=== PATIENT | female | born 1945 | race Caucasian/White ===

== ENCOUNTER 2016-11-25 15:38 | Emergency (ER) | payer MEDICARE, MEDICAID ==
[~2016-11-25] VITALS: Ht 170.2 cm; Wt 59.0 kg
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
[2016-11-25 16:00] VITALS: BP 152/73
[2016-11-25] MEDS ORDERED: OLANZapine 5 MG ODT (ZyPREXA ZYDIS) PO ONE (16:00)
[2016-11-25] MEDS ORDERED: HALOPERIDOL 5 MG/ML (HALDOL) AMP ONE (16:02)
[2016-11-25 16:06] LABS: BASOPHILS % (AUTO) 0 % (0-10); EOSINOPHILS % (AUTO) 0 % (0-10); LYMPHOCYTES # (AUTO) 2.3 X 10^3 (1.0-4.0); LYMPHOCYTES % (AUTO) 29 % (12-44); MEAN CORPUSCULAR HEMOGLOBIN 29 PG (25-34); MEAN CORPUSCULAR HGB CONC 33 G/DL (32-36); MEAN CORPUSCULAR VOLUME 88 FL (80-99); MEAN PLATELET VOLUME 10.2 FL (7.4-10.4); MONOCYTES # (AUTO) 0.6 X 10^3 (0.0-1.0); MONOCYTES % (AUTO) 7 % (0-12); NEUTROPHILS # (AUTO) 5.1 X 10^3 (1.8-7.8); NEUTROPHILS % (AUTO) 63 % (42-75); PLATELET COUNT 242 10^3/uL (130-400); RED BLOOD COUNT 4.44 10^6/uL (4.35-5.85); RED CELL DISTRIBUTION WIDTH 16.1 % (10.0-14.5)
[2016-11-25] MEDS ORDERED: HALOPERIDOL 5 MG/ML (HALDOL) AMP IM ONE (16:15)
[2016-11-25 16:29] LABS: ALANINE AMINOTRANSFERASE 20 U/L (0-55); ANION GAP 9 MMOL/L (5-14); ASPARTATE AMINO TRANSFERASE 18 U/L (5-34); BILIRUBIN,TOTAL 0.2 MG/DL (0.1-1.0); BLOOD UREA NITROGEN 15 MG/DL (7-18); BUN/CREATININE RATIO 18; CALCIUM 10.1 MG/DL (8.5-10.1); CARBON DIOXIDE 22 MMOL/L (21-32); CHLORIDE 108 MMOL/L (98-107); CREATININE SERUM 0.83 MG/DL (0.60-1.30); GFR ESTIMATED > 60; GLUCOSE 108 MG/DL (70-105); POTASSIUM 3.8 MMOL/L (3.6-5.0); SODIUM 139 MMOL/L (135-145); TOTAL PROTEIN 6.5 GM/DL (6.4-8.2)
[2016-11-25] MEDS ORDERED: APAP 300 MG/CODEINE 30 MG (TYLENOL #3) TAB PO ONE (17:00)
[2016-11-25] MEDS ORDERED: LORazepam INJ 2 MG/ML (ATIVAN) VIAL IM ONE (17:00)
[2016-11-25] MEDS ORDERED: HYDROcodone/APAP 5 MG/325 MG (LORTAB) TAB PO ONE (18:00)
[2016-11-25] MEDS ORDERED: AMOX500C2 PO (18:58)
[2016-11-25] MEDS ORDERED: LORA2ORA PO (18:58)
[2016-11-25] MEDS ORDERED: DOCU-143 PO (18:58)
[2016-11-25] MEDS ORDERED: HYDR-757 PO (18:58)
--- OUTSIDE RECORDS SUMMARY | 2016-11-26 11:11 | XMS REPORT ---
Author Author ELVIA PENNY [facility] eClinicalWorks Address Unknown Phone Unavailable Care Team Providers Care Superintendent Landfill Operations Name Role Phone ELVIA PENNY CP Unavailable Allergies, Adverse Reactions, Alerts Substance Reaction Event Type N.K.D.A. Info Not Available Non Drug Allergy Problems Problem Type Condition Code Onset Dates Condition Status Assessment CONSTIPATION NOS 564.00 Active Assessment GERD 530.81 Active Assessment Acute bronchitis 466.0 Active Assessment Tobaccoism 305.1 Active Problem back pain 724.5 Active Problem COPD w/o exacerbation 491.20 Active Problem Tobacco use disorder 305.1 Active Problem GERD 530.81 Active Assessment COPD w/o exacerbation 491.20 Active Problem Back pain 724.5 Active Problem Hypertension 401.9 Active Medications Medication Code System Code Instructions Start Date End Date Status Dosage [place]ybutynin NDC 50789 5 mg orally 3 times a day 1 tab(s) gabapentin NDC 65447 600 mg orally 3 times a day Feb 06, 2013 1 cap( s) Therems M NDC 6341 Therapeutic Multiple Vitamins with Minerals orally once a day 1 tab(s) MiraLax NDC 86010 - orally once a day 0 amlodipine NDC 07782 2.5 mg orally once a day 1 tab(s) Prednisone NDC 92939 20 mg orally once a day July 26, 2014 2 tab(s ) Fetzima NDC 352482 80 mg orally once a day 1 cap(s) atorvastatin NDC 57791 10 mg orally once a day (at bedtime) 1 tab( s) hydroxyzine NDC 27800 hydrochloride 50 mg orally 3 times a day 1 tab(s) trazodone NDC 14621 100 mg orally as needed at bedtime 2 tablets diclofenac sodium NDC 32357 sodium 75 mg orally once daily and maybe take 1 tablet again if needed May 07, 2014 1-2 tab(s) Seroquel NDC 08084 25 mg orally 2 times a day 1 tab(s) omeprazole NDC 98654 20 mg orally once a day May 28, 2014 1 cap(s) clopidogrel NDC 92897 75 mg orally once a day 1 tab(s) MiraLax NDC 93534 - orally once a day as needed July 26, 2014 17 g Seroquel XR NDC 742035 300 mg orally once a day (in the evening) 2 tablets Nicoderm C-Q NDC 20711 21 mg/24 hr transdermally once a day July 26, 2014 1 PATCH Melatonin NDC 5609 3 mg orally once (at bedtime) 2 tablets clonazepam NDC 75568 0.5 mg orally 1 tab twice a day and 2 at bedtime 1 tab(s) ProAir HFA NDC 79121 CFC free 90 mcg/inh inhaled as needed every 4-6 hrs INHALE 2 PUFFS FOUR TIMES A DAY LEVAQUIN NDC 6466 750 mg orally every 24 hours July 26, 2014 1 tab( s) Procedures Procedure Coding System Code Date Office Visit, estab pt, Level 3 CPT-4 72181 July 26, 2014 Vital Signs Date/Time: July 26, 2014 BMI 30.38 Index Weight 194 lbs Height 67 in Pain Scale 0-denies 0-10 Blood Pressure Diastolic 80 mm Hg Blood Pressure Systolic 140 mm Hg Temperature 99.8 F Oximetry 92 % Results No Known Results Summary Purpose eClinicalWorks Submission
--- OUTSIDE RECORDS SUMMARY | 2016-11-26 11:11 | XMS REPORT ---
Author Author ALISSA GONZALEZ Organization eClinicalWorks Address Unknown Phone Unavailable Care Team Providers Care Line Tender Name Role Phone ALISSA GONZALEZ CP Unavailable Allergies No Known Allergies Problems Problem Type Condition Code Onset Dates Condition Status Problem Cognitive deficits 438.0 Active Problem Tobacco use Z72.0 Active Problem Essential (primary) hypertension I10 Active Problem Chronic obstructive pulmonary disease, unspecified J44.9 Active Problem Cognitive deficits 438.0 Active Problem Gastro-esophageal reflux disease without esophagitis K21.9 Active Problem Hyperlipidemia, unspecified E78.5 Active Problem Post-traumatic stress disorder, chronic F43.12 Active Medications No Known Medications Results No Known Results Summary Purpose eClinicalWorks Submission
--- OUTSIDE RECORDS SUMMARY | 2016-11-26 11:12 | XMS REPORT ---
Author Author LUIS ALFREDO MENDOZA Organization eClinicalWorks Address Unknown Phone Unavailable Care Team Providers Care Banking Representative Name Role Phone LUIS ALFREDO MENDOZA CP Unavailable Allergies, Adverse Reactions, Alerts Substance Reaction Event Type Pristiq diarrhea Drug Allergy lithium vomiting Drug Allergy Wellbutrin tinnitus Drug Allergy Prozac palpitations Drug Allergy Problems Problem Type Condition Code Onset Dates Condition Status Problem Cognitive deficits 438.0 Active Assessment Wheezing R06.2 Active Problem Tobacco use Z72.0 Active Problem Essential (primary) hypertension I10 Active Problem Chronic obstructive pulmonary disease, unspecified J44.9 Active Problem Cognitive deficits 438.0 Active Problem Gastro-esophageal reflux disease without esophagitis K21.9 Active Problem Hyperlipidemia, unspecified E78.5 Active Problem Post-traumatic stress disorder, chronic F43.12 Active Medications Medication Code System Code Instructions Start Date End Date Status Dosage Seroquel XR NDC 614642 300 mg orally once a day (in the evening) 1 tablets gabapentin NDC 02541 600 mg orally daily Feb 06, 2013 3 caps omeprazole NDC 17146 20 mg orally once a day May 28, 2014 1 cap(s) Therems M NDC 6341 Therapeutic Multiple Vitamins with Minerals orally once a day 1 tab(s) Ventolin HFA NDC 54372 CFC free 90 mcg/inh inhaled 4 times a day May 15, 2015 2 puff(s) donepezil NDC 78809 5 mg orally daily at bedtime not defined clonidine NDC 52611 0.1 mg orally as needed every 6 hrs for SBP over 170 1 tab(s) Seroquel NDC 32324 100 mg orally 1 times a day at bedtime 1 tab(s) donepezil NDC 25409 5 mg orally once a day (at bedtime) 1 tab(s) quetiapine NDC 45958 50 mg orally 2 times a day 1 tab(s) prednisone NDC 56360 20 mg orally once a day July 30, 2015 1 tab(s) Advair Diskus NDC 58696 250 mcg-50 mcg inhaled 2 times a day 1 puff(s) VESIcare NDC 48940 10 mg orally once a day 1 tab(s) sertraline NDC 68678 50 mg orally once a day 1 tab(s) Protonix NDC 31155 40 mg orally once a day 1 tab(s) lisinopril NDC 43823 20 mg orally once a day 1 tab(s) oxybutynin NDC 27520 5 mg orally 3 times a day 1 tab(s) Symbicort NDC 93143 160 mcg-4.5 mcg/inh inhaled 2 times a day 2 puff(s) quetiapine NDC 35535 50 mg orally 4 times a day as needed for anxiety or insomnia, can repeat in 1 hrs at HS if not sleeping 2 tab(s) Polyethylene Glycol NDC 22933 - orally as needed once a day 240 mL atorvastatin NDC 24484 20 mg orally once a day (at bedtime) 1 tab( s) Procedures Procedure Coding System Code Date Office Visit, estab pt, Level 3 CPT-4 33902 July 30, 2015 Vital Signs Date/Time: July 30, 2015 Blood Pressure Diastolic 80 mm Hg Blood Pressure Systolic 120 mm Hg Weight 211 lbs Oximetry 97 % Pain Scale 0 0-10 Results No Known Results Summary Purpose eClinicalWorks Submission
--- OUTSIDE RECORDS SUMMARY | 2016-11-26 11:12 | XMS REPORT ---
Author Author ALISSA GONZALEZ Organization eClinicalWorks Address Unknown Phone Unavailable Care Team Providers Care Credit Cashier Name Role Phone ALISSA GONZALEZ CP Unavailable [...]
--- OUTSIDE RECORDS SUMMARY | 2016-11-26 11:12 | XMS REPORT ---
Author Author ALISSA GONZALEZ Organization eClinicalWorks Address Unknown Phone Unavailable Care Team Providers Care Dry Cleaning Supervisor Name Role Phone ALISSA GONZALEZ CP Unavailable Allergies No Known Allergies Problems Problem Type Condition Code Onset Dates Condition Status Problem GERD 530.81 Active Problem Hyperlipidemia 272.4 Active Problem Tobacco use disorder 305.1 Active Problem Cognitive deficits 438.0 Active Problem Back pain 724.5 Active Problem Hypertension 401.9 Active Problem back pain 724.5 Active Problem COPD w/o exacerbation 491.20 Active Medications No Known Medications Results No Known Results Summary Purpose eClinicalWorks Submission
--- OUTSIDE RECORDS SUMMARY | 2016-11-26 11:12 | XMS REPORT ---
Author Author ALISSA GONZALEZ Organization eClinicalWorks Address Unknown Phone Unavailable Care Team Providers Care Paperboard Box Maker Name Role Phone ALISSA GONZALEZ CP Unavailable Allergies No Known Allergies Problems Problem Type Condition Code Onset Dates Condition Status Problem Gastro-esophageal reflux disease without esophagitis K21.9 Active Problem Cognitive deficits 438.0 Active Problem Chronic obstructive pulmonary disease, unspecified J44.9 Active Problem Tobacco use Z72.0 Active Problem Chronic obstructive pulmonary disease with (acute) exacerbation J44.1 Active Problem Post-traumatic stress disorder, chronic F43.12 Active Problem Cognitive deficits 438.0 Active Problem Essential (primary) hypertension I10 Active Problem Hyperlipidemia, unspecified E78.5 Active Medications No Known Medications Results No Known Results Summary Purpose eClinicalWorks Submission
--- OUTSIDE RECORDS SUMMARY | 2016-11-26 11:12 | XMS REPORT ---
Author Author ELVIA PENNY Organization eClinicalWorks Address Unknown Phone Unavailable Care Team Providers Care Size Worker Name Role Phone ELVIA PENNY CP Unavailable Allergies No Known Allergies Problems Problem Type Condition Code Onset Dates Condition Status Problem back pain 724.5 Active Problem COPD w/o exacerbation 491.20 Active Problem Tobacco use disorder 305.1 Active Problem GERD 530.81 Active Problem Back pain 724.5 Active Problem Hypertension 401.9 Active Medications Medication Code System Code Instructions Start Date End Date Status Dosage Symbicort NDC 16647 160 mcg-4.5 mcg/inh inhaled 2 times a day July 27, 2014 2 puff(s) Results No Known Results Summary Purpose eClinicalWorks Submission
--- OUTSIDE RECORDS SUMMARY | 2016-11-26 11:12 | XMS REPORT ---
Author Author ALISSA GONZALEZ Organization e[employer] Address Unknown Phone Unavailable Care Team Providers Care Cold Type Artist Name Role Phone ALISSA GONZALEZ CP Unavailable [...]
--- OUTSIDE RECORDS SUMMARY | 2016-11-26 11:12 | XMS REPORT ---
Author Author LUIS ALFREDO MENDOZA [facility] eClinicalWorks Address Unknown Phone Unavailable Care Team Providers Care Disability Insurance Hearing Officer Name Role Phone LUIS ALFREDO MENDOZA CP Unavailable Allergies, Adverse Reactions, Alerts Substance Reaction Event Type Pristiq diarrhea Drug Allergy Wellbutrin tinitus Drug Allergy Prozac palpitations Drug Allergy Problems Problem Type Condition Code Onset Dates Condition Status Problem GERD 530.81 Active Assessment Acute sinusitis, unspecified J01.90 Active Problem Hyperlipidemia 272.4 Active Problem Tobacco use disorder 305.1 Active Problem Cognitive deficits 438.0 Active Problem Back pain 724.5 Active Problem Hypertension 401.9 Active Problem back pain 724.5 Active Problem COPD w/o exacerbation 491.20 Active Medications Medication Code System Code Instructions Start Date End Date Status Dosage Augmentin NDC 589 875 mg-125 mg orally every 12 hours Feb 25, 2015 1 tab(s) ProAir HFA NDC 56796 CFC free 90 mcg/inh inhaled as needed every 4-6 hrs inhale 2 puffs four times a day Symbicort NDC 50221 160 mcg-4.5 mcg/inh inhaled 2 times a day 2 puff(s) Melatonin NDC 5609 3 mg orally once (at bedtime) 2 tablets Seroquel XR NDC 936691 300 mg orally once a day (in the evening) 2 tablets hydroxyzine NDC 47242 hydrochloride 50 mg orally 3 times a day 1 tab(s) clonazepam NDC 03796 0.5 mg orally 1 tab twice a day and 2 at bedtime 1 tab(s) Fetzima NDC 388723 80 mg orally once a day 1 cap(s) naproxen NDC 73772 375 mg orally 2 times a day with food Feb 25, 2015 1 tab(s) Neurontin NDC 2269 600 mg orally 3 times a day 1 tab(s) Procedures Procedure Coding System Code Date Office Visit, estab pt, Level 3 CPT-4 06765 Feb 25, 2015 Vital Signs Date/Time: Feb 25, 2015 Blood Pressure Systolic 142 mm Hg Temperature 98.5 F Weight 207 lbs Oximetry 96 % Pain Scale 9-10 0-10 Blood Pressure Diastolic 70 mm Hg Results No Known Results Summary Purpose eClinicalWorks Submission
--- OUTSIDE RECORDS SUMMARY | 2016-11-26 11:12 | XMS REPORT ---
Author Author ALISSA GONZALEZ Organization eClinicalWorks Address Unknown Phone Unavailable Care Team Providers Care Medical Records Tech Name Role Phone ALISSA GONZALEZ CP Unavailable Allergies No Known Allergies Problems Problem Type Condition ICD-9 Code Onset Dates Condition Status Assessment Dysequilibrium 780.4 Active Problem GERD 530.81 Active Assessment Weakness, generalized 780.79 Active Assessment Cognitive deficits 438.0 Active Assessment Imbalance 781.2 Active Problem Hyperlipidemia 272.4 Active Problem Tobacco use disorder 305.1 Active Problem Cognitive deficits 438.0 Active Problem Back pain 724.5 Active Problem Hypertension 401.9 Active Problem back pain 724.5 Active Problem COPD w/o exacerbation 491.20 Active Medications No Known Medications Results No Known Results Summary Purpose eClinicalWorks Submission
--- OUTSIDE RECORDS SUMMARY | 2016-11-26 11:12 | XMS REPORT ---
Author Author ALISSA GONZALEZ Organization eClinicalWorks Address Unknown Phone Unavailable Care Team Providers Care Ear Muff Assembler Name Role Phone ALISSA GONZALEZ CP Unavailable [...]
--- OUTSIDE RECORDS SUMMARY | 2016-11-26 11:12 | XMS REPORT ---
Author Author ALISSA GONZALEZ Organization eClinicalWorks Address Unknown Phone Unavailable Care Team Providers Care Barrel Cap Setter Name Role Phone ALISSA GONZALEZ CP Unavailable Allergies No Known Allergies Problems Problem Type Condition ICD-9 Code Onset Dates Condition Status Problem GERD 530.81 Active Problem Hyperlipidemia 272.4 Active Problem Tobacco use disorder 305.1 Active Problem Cognitive deficits 438.0 Active Problem Back pain 724.5 Active Problem Hypertension 401.9 Active Problem back pain 724.5 Active Problem COPD w/o exacerbation 491.20 Active Medications No Known Medications Results No Known Results Summary Purpose eClinicalWorks Submission
--- OUTSIDE RECORDS SUMMARY | 2016-11-26 11:12 | XMS REPORT ---
Author Author ELVIA PENNY [facility] eClinicalWorks Address Unknown Phone Unavailable Care Team Providers Care Director Of Admissions Name Role Phone ELVIA PENNY Unavailable Allergies No Known Allergies Problems Problem Type Condition ICD-9 Code Onset Dates Condition Status Problem back pain 724.5 Active Problem COPD w/o exacerbation 491.20 Active Problem Tobacco use disorder 305.1 Active Problem Back pain 724.5 Active Medications Medication Code System Code Instructions Start Date End Date Status Dosage Nicoderm C-Q [facility] 53170 14 mg/24 hr transdermally once a day May 22, 2014 1 PATCH Results No Known Results Summary Purpose eClinicalWorks Submission
--- OUTSIDE RECORDS SUMMARY | 2016-11-26 11:12 | XMS REPORT ---
Author Author ALISSA GONZALEZ Organization eClinicalWorks Address Unknown Phone Unavailable Care Team Providers Care Applications Packager Name Role Phone ALISSA GONZALEZ CP Unavailable [...]
--- OUTSIDE RECORDS SUMMARY | 2016-11-26 11:12 | XMS REPORT ---
Author Author ELVIA PENNY Organization eClinicalWorks Address Unknown Phone Unavailable Care Team Providers Care Table Hand Name Role Phone ELVIA PENNY CP Unavailable Allergies No Known Allergies Problems Problem Type Condition Code Onset Dates Condition Status Problem back pain 724.5 Active Problem COPD w/o exacerbation 491.20 Active Problem Tobacco use disorder 305.1 Active Problem GERD 530.81 Active Assessment Acute bronchitis 466.0 Active Problem Back pain 724.5 Active Problem Hypertension 401.9 Active Medications Medication Code System Code Instructions Start Date End Date Status Dos[place]DC 19102 CFC free 90 mcg/inh inhaled as needed every 4-6 hrs INHALE 2 PUFFS FOUR TIMES A DAY Results No Known Results Summary Purpose eClinicalWorks Submission
--- OUTSIDE RECORDS SUMMARY | 2016-11-26 11:13 | XMS REPORT ---
Author Author ELVIA PENNY Organization eClinicalWorks Address Unknown Phone Unavailable Care Team Providers Care Senior Web Services Developer Name Role Phone ELVIA PENNY Unavailable Allergies No Known Allergies Problems Problem Type Condition ICD-9 Code Onset Dates Condition Status Problem back pain 724.5 Active Problem COPD w/o exacerbation 491.20 Active Problem Tobacco use disorder 305.1 Active Problem Back pain 724.5 Active Assessment COPD w/o exacerbation 491.20 Active Medications Medication Code System Code Instructions Start Date End Date [place] [address] CFC free 90 mcg/inh inhaled as needed every 4-6 hrs INHALE 2 PUFFS [place] [address] 20 mg orally once a day May 28, 2014 1 cap(s) Results No Known Results Summary Purpose eClinicalWorks Submission
--- OUTSIDE RECORDS SUMMARY | 2016-11-26 11:13 | XMS REPORT ---
Author Author LUIS ALFREDO MENDOZA Organization e[employer]Works Address Unknown Phone Unavailable Care Team Providers Care Grinder Set Up Operator Thread Name Role Phone LUIS ALFREDO MENDOZA CP Unavailable Allergies, Adverse Reactions, Alerts Substance Reaction Event Type Pristiq diarrhea Drug Allergy Wellbutrin tinnitus Drug Allergy Prozac palpitations Drug Allergy Problems Problem Type Condition Code Onset Dates Condition Status Problem Cognitive deficits 438.0 Active Assessment Other migraine, intractable, without status migrainosus G43.819 Active Problem Tobacco use Z72.0 Active Problem Essential (primary) hypertension I10 Active Problem Chronic obstructive pulmonary disease, unspecified J44.9 Active Problem Cognitive deficits 438.0 Active Problem Gastro-esophageal reflux disease without esophagitis K21.9 Active Problem Hyperlipidemia, unspecified E78.5 Active Problem Post-traumatic stress disorder, chronic F43.12 Active Medications Medication Code System Code Instructions Start Date End Date Status Dosage Seroquel XR NDC 183272 300 mg orally once a day (in the evening) 2 tablets propranolol NDC 44349 10 mg orally 2 times a day May 01, 2015 1 tab( s) atorvastatin NDC 12879 20 mg orally once a day (at bedtime) 1 tab( s) omeprazole NDC 56392 20 mg orally once a day May 28, 2014 1 cap(s) ProAir HFA NDC 88651 CFC free 90 mcg/inh inhaled as needed every 4-6 hrs inhale 2 puffs four times a day oxybutynin NDC 99006 5 mg orally 3 times a day 1 tab(s) Symbicort NDC 82232 160 mcg-4.5 mcg/inh inhaled 2 times a day 2 puff(s) Melatonin NDC 5609 3 mg orally once (at bedtime) 2 tablets aspirin NDC 23712 325 mg orally once a day 1 tab(s) Excedrin Migraine NDC 36095 250 mg-250 mg-65 mg orally every 6 hours Apr 2 tab(s) Fetzima NDC 227479 40 mg orally once a day 1 cap(s) Walker NDC 0 September 17, 2014 as directed cevimeline NDC 19199 30 mg orally 2 times a day 1 cap(s) clonazepam NDC 23862 0.5 mg orally 1 tab twice a day 1 tab(s) lisinopril NDC 32472 10 mg orally once a day 1 tab(s) gabapentin NDC 84838 300 mg orally 3 times a day for headaches Feb 06, 2013 1 caps Procedures Procedure Coding System Code Date Office Visit, estab pt, Level 4 CPT-4 29200 May 06, 2015 Methylprednisolone (Depo-Medrol) CPT-4 J1030 May 06, 2015 Vital Signs Date/Time: May 06, 2015 Blood Pressure Systolic 174 mm Hg Temperature 99.1 F Weight 210.4 lbs Oximetry 90 % Pain Scale 10 0-10 Blood Pressure Diastolic 92 mm Hg Results No Known Results Summary Purpose eClinicalWorks Submission
--- OUTSIDE RECORDS SUMMARY | 2016-11-26 11:13 | XMS REPORT ---
Author Author ALISSA GONZALEZ [facility] eClinicalWorks Address Unknown Phone Unavailable Care Team Providers Care Sausage Smoker Name Role Phone ALISSA GONZALEZ CP Unavailable Allergies No Known Allergies Problems Problem Type Condition Code Onset Dates Condition Status Assessment Essential (primary) hypertension I10 Active Problem Cognitive deficits 438.0 Active Assessment Chronic tension-type headache, intractable G44.221 Active Problem Tobacco use Z72.0 Active Problem Essential (primary) hypertension I10 Active Problem Chronic obstructive pulmonary disease, unspecified J44.9 Active Problem Cognitive deficits 438.0 Active Problem Gastro-esophageal reflux disease without esophagitis K21.9 Active Problem Hyperlipidemia, unspecified E78.5 Active Problem Post-traumatic stress disorder, chronic F43.12 Active Medications Medication Code System Code Instructions Start Date End Date Status Dosage oxybutynin NDC 84147 5 mg orally 3 times a day 1 tab(s) atorvastatin NDC 78299 20 mg orally once a day (at bedtime) 1 tab( s) Melatonin NDC 5609 3 mg orally once (at bedtime) 2 tablets gabapentin NDC 14754 300 mg orally 3 times a day for headaches Feb 06, 2013 1 caps Seroquel XR NDC 762929 300 mg orally once a day (in the evening) 2 tablets clonazepam NDC 66064 0.5 mg orally 1 tab twice a day 1 tab(s) ProAir HFA NDC 80883 CFC free 90 mcg/inh inhaled as needed every 4-6 hrs inhale 2 puffs four times a day Symbicort NDC 39096 160 mcg-4.5 mcg/inh inhaled 2 times a day 2 puff(s) lisinopril NDC 52352 10 mg orally once a day 1 tab(s) aspirin NDC 31844 325 mg orally once a day 1 tab(s) Fetzima NDC 067556 40 mg orally once a day 1 cap(s) propranolol NDC 52406 10 mg orally 2 times a day May 01, 2015 1 tab( s) Excedrin Migraine [facility] 53821 250 mg-250 mg-65 mg orally every 6 hours Apr 2 tab(s) Procedures Procedure Coding System Code Date Office Visit, estab pt, Level 4 CPT-4 52870 May 01, 2015 Vital Signs Date/Time: May 01, 2015 Blood Pressure Diastolic 92 mm Hg Blood Pressure Systolic 168 mm Hg Weight 212 lbs Pain Scale 8 0-10 Results No Known Results Summary Purpose eClinicalWorks Submission
--- OUTSIDE RECORDS SUMMARY | 2016-11-26 11:13 | XMS REPORT ---
Author Author ELVIA PENNY Organization [employer] Address Unknown Phone Unavailable Care Team Providers Care Communications Intern Name Role Phone ELVIA PENNY Unavailable Allergies No Known Allergies Problems Problem Type Condition ICD-9 Code Onset Dates Condition Status Problem back pain 724.5 Active Problem COPD w/o exacerbation 491.20 Active Problem Tobacco use disorder 305.1 Active Problem Back pain 724.5 Active Assessment back pain 724.5 Active Medications Medication Code System Code Instructions Start Date End Date Status Dosage diclofenac sodium [facility] 99132 sodium 75 mg orally once daily and maybe take 1 tablet again if needed May 07, 2014 1-2 tab(s) Results No Known Results Summary Purpose eClinicalWorks Submission
--- OUTSIDE RECORDS SUMMARY | 2016-11-26 11:14 | XMS REPORT ---
Author Author ALISSA GONZALEZ [facility] eClinicalWorks Address Unknown Phone Unavailable Care Team Providers Care Country Director Name Role Phone ALISSA GONZALEZ CP Unavailable Allergies, Adverse Reactions, Alerts Substance Reaction Event Type Pristiq diarrhea Drug Allergy Wellbutrin tinitus Drug Allergy Prozac palpitations Drug Allergy Problems Problem Type Condition ICD-9 Code Onset Dates Condition Status Assessment Cognitive impairment, mild 331.83 Active Problem GERD 530.81 Active Assessment Imbalance 781.2 Active Assessment Overactive bladder 596.51 Active Problem Hyperlipidemia 272.4 Active Problem Tobacco use disorder 305.1 Active Problem Cognitive deficits 438.0 Active Problem Back pain 724.5 Active Problem Hypertension 401.9 Active Problem back pain 724.5 Active Problem COPD w/o exacerbation 491.20 Active Medications Medication Code System Code Instructions Start Date End Date Status Dosage hydroxyzine NDC 03478 hydrochloride 50 mg orally 3 times a day 1 tab(s) Neurontin NDC 2269 600 mg orally 3 times a day 1 tab(s) Seroquel XR NDC 221344 300 mg orally once a day (in the evening) 2 tablets ProAir HFA NDC 31237 CFC free 90 mcg/inh inhaled as needed every 4-6 hrs inhale 2 puffs four times a day clonazepam NDC 16495 0.5 mg orally 1 tab twice a day and 2 at bedtime 1 tab(s) Fetzima NDC 811143 80 mg orally once a day 1 cap(s) Melatonin NDC 5609 3 mg orally once (at bedtime) 2 tablets Symbicort NDC 51459 160 mcg-4.5 mcg/inh inhaled 2 times a day 2 puff(s) Procedures Procedure Coding System Code Date Office Visit, estab pt, Level 5 CPT-4 46955 Dec 20, 2014 Vital Signs Date/Time: Dec 20, 2014 Blood Pressure Diastolic 80 mm Hg Blood Pressure Systolic 122 mm Hg Weight 191.4 lbs Pain Scale 0 0-10 Results No Known Results Summary Purpose eClinicalWorks Submission
--- OUTSIDE RECORDS SUMMARY | 2016-11-26 11:14 | XMS REPORT ---
Author Author SANDEEP RODRIGEZ [facility] eClinicalWorks Address Unknown Phone Unavailable Care Team Providers Care Snuff Packing Machine Operator Name Role Phone SANDEEP RODRIGEZ CP Unavailable Allergies, Adverse Reactions, Alerts Substance Reaction Event Type Pristiq diarrhea Drug Allergy Wellbutrin tinnitus Drug Allergy Prozac palpitations Drug Allergy Problems Problem Type Condition Code Onset Dates Condition Status Assessment Hyperlipidemia, unspecified E78.5 Active Problem Cognitive deficits 438.0 Active Assessment Essential (primary) hypertension I10 Active Assessment Post-traumatic stress disorder, chronic F43.12 Active Assessment Cognitive deficits 438.0 Active Problem Tobacco use Z72.0 Active Problem Essential (primary) hypertension I10 Active Problem Chronic obstructive pulmonary disease, unspecified J44.9 Active Problem Cognitive deficits 438.0 Active Problem Gastro-esophageal reflux disease without esophagitis K21.9 Active Problem Hyperlipidemia, unspecified E78.5 Active Problem Post-traumatic stress disorder, chronic F43.12 Active Medications Medication Code System Code Instructions Start Date End Date Status Dosage lisinopril NDC 96649 10 mg orally once a day 1 tab(s) omeprazole NDC 86035 20 mg orally once a day May 28, 2014 1 cap(s) gabapentin NDC 98849 300 mg orally 3 times a day for headaches Feb 06, 2013 2 caps cevimeline NDC 10257 30 mg orally 2 times a day 1 cap(s) atorvastatin NDC 81825 20 mg orally once a day (at bedtime) 1 tab( s) aspirin NDC 82141 325 mg orally once a day 1 tab(s) Symbicort NDC 88008 160 mcg-4.5 mcg/inh inhaled 2 times a day 2 puff(s) ProAir HFA NDC 45740 CFC free 90 mcg/inh inhaled as needed every 4-6 hrs inhale 2 puffs four times a day Seroquel XR ND 708263 300 mg orally once a day (in the evening) 2 tablets clonazepam NDC 88330 0.5 mg orally 1 tab twice a day and 2 at bedtime 1 tab(s) Melatonin NDC 5609 3 mg orally once (at bedtime) 2 tablets oxybutynin NDC 84985 5 mg orally 3 times a day 1 tab(s) Fetzima NDC 463330 80 mg orally once a day 1 cap(s) Procedures Procedure Coding System Code Date Office Visit, estab pt, Level 3 CPT-4 82667 Mar 22, 2015 PNEUMOCOCCAL-CONJUGATE 1 PREVNAR 13 CPT-4 83917 Mar 22, 2015 Vital Signs Date/Time: Mar 22, 2015 Blood Pressure Diastolic 78 mm Hg Blood Pressure Systolic 130 mm Hg Weight 212.0lb lbs Oximetry 97%RA % Pain Scale 0 0-10 Results No Known Results Immunizations Vaccine Administration Date PCV-13 (Prevnar) Mar 22, 2015 Summary Purpose eClinicalWorks Submission
--- OUTSIDE RECORDS SUMMARY | 2016-11-26 11:14 | XMS REPORT ---
Author Author ALISSA GONZALEZ Organization [employer] Address Unknown Phone Unavailable Care Team Providers Care Real Estate Loan Officer Name Role Phone ALISSA GONZALEZ CP Unavailable [...]
--- OUTSIDE RECORDS SUMMARY | 2016-11-26 11:14 | XMS REPORT ---
Author Author ELVIA PENNY Organization [employer] Address Unknown Phone Unavailable Care Team Providers Care Cement Production Plant Operator Name Role Phone ELVIA PENNY CP Unavailable Allergies No Known Allergies Problems Problem Type Condition Code Onset Dates Condition Status Problem back pain 724.5 Active Problem COPD w/o exacerbation 491.20 Active Problem Tobacco use disorder 305.1 Active Problem GERD 530.81 Active Problem Back pain 724.5 Active Problem Hypertension 401.9 Active Medications Medication Code System Code Instructions Start Date End Date Status Dosage Chantix Starter Pack ND 834569 0.5 mg-1 mg orally 2 times a day August 06, 2014 1 tab(s) Results No Known Results Summary Purpose eClinicalWorks Submission
--- OUTSIDE RECORDS SUMMARY | 2016-11-26 11:14 | XMS REPORT ---
Author Author ALISSA GONZALEZ Organization [employer] Address Unknown Phone Unavailable Care Team Providers Care Silviculture Forester Name Role Phone ALISSA GONZALEZ CP Unavailable [...]
--- OUTSIDE RECORDS SUMMARY | 2016-11-26 11:14 | XMS REPORT ---
Author Author ELVIA PENNY [facility] eClinicalWorks Address Unknown Phone Unavailable Care Team Providers Care Cement Kiln Operator Name Role Phone ELVIA PENNY CP Unavailable Allergies, Adverse Reactions, Alerts Substance Reaction Event Type N.K.D.A. Info Not Available Non Drug Allergy Problems Problem Type Condition Code Onset Dates Condition Status Assessment COPD w/o exacerbation 491.20 Active Assessment Dizziness 780.4 Active Assessment Cough 786.2 Active Problem back pain 724.5 Active Problem COPD w/o exacerbation 491.20 Active Problem Tobacco use disorder 305.1 Active Problem GERD 530.81 Active Assessment DYSPHAGIA NOS 787.20 Active Problem Back pain 724.5 Active Problem Hypertension 401.9 Active Assessment Schizoaffective disorder NOS 295.70 Active Assessment Acute bronchitis 466.0 Active Assessment CONSTIPATION NEC 564.09 Active Assessment Hypertension 401.9 Active Assessment Tobacco use disorder 305.1 Active Assessment back pain 724.5 Active Assessment Overactive bladder 596.51 Active Medications Medication Code System Code Instructions Start Date End Date Status Dosage Fetzima ND 518860 80 mg orally once a day 1 cap(s) Therems M NDC 6341 Therapeutic Multiple Vitamins with Minerals orally once a day 1 tab(s) clopidogrel NDC 51793 75 mg orally once a day 1 tab(s) amlodipine NDC 73144 2.5 mg orally once a day 1 tab(s) clonazepam NDC 23011 0.5 mg orally 1 tab twice a day and 2 at bedtime 1 tab(s) Seroquel XR NDC 534381 300 mg orally once a day (in the evening) 2 tablets ProAir HFA NDC 29428 CFC free 90 mcg/inh inhaled as needed every 4-6 hrs INHALE 2 PUFFS FOUR TIMES A DAY oxybutynin NDC 29227 5 mg orally 3 times a day 1 tab([place]) [place] [address] 20 mg orally once a day May 28, 2014 1 cap(s) Seroquel NDC 61175 25 mg orally 2 times a day 1 tab(s) hydroxyzine NDC 88703 hydrochloride 50 mg orally 3 times a day 1 tab(s) atorvastatin NDC 81235 10 mg orally once a day (at bedtime) 1 tab( s) diclofenac sodium NDC 23761 sodium 75 mg orally once daily and maybe take 1 tablet again if needed May 07, 2014 1-2 tab(s) gabapentin NDC 24133 600 mg orally 3 times a day Feb 06, 2013 1 cap( s) Procedures Procedure Coding System Code Date Office Visit, estab pt, Level 3 CPT-4 92847 July 13, 2014 Vital Signs Date/Time: July 13, 2014 Blood Pressure Systolic 120 mm Hg Temperature 97.2 F Weight 199 lbs Oximetry 97 % Pain Scale 7-joints/legs 0-10 Blood Pressure Diastolic 70 mm Hg Results No Known Results Summary Purpose eClinicalWorks Submission
--- OUTSIDE RECORDS SUMMARY | 2016-11-26 11:14 | XMS REPORT ---
Author Author ELVIA PENNY Organization [employer] Address Unknown Phone Unavailable Care Team Providers Care Auto Air Conditioning Installer Name Role Phone ELVIA PENNY CP Unavailable Allergies No Known Allergies Problems Problem Type Condition ICD-9 Code Onset Dates Condition Status Problem back pain 724.5 Active Problem COPD w/o exacerbation 491.20 Active Problem Tobacco use disorder 305.1 Active Problem GERD 530.81 Active Problem Back pain 724.5 Active Problem Hypertension 401.9 Active Medications No Known Medications Results No Known Results Summary Purpose eClinicalWorks Submission
--- OUTSIDE RECORDS SUMMARY | 2016-11-26 11:14 | XMS REPORT ---
Author Author SALEEM LEACH Organization [employer] Address Unknown Phone Unavailable Care Team Providers Care Hair Blender Name Role Phone SALEEM LEACH CP Unavailable Allergies, Adverse Reactions, Alerts Substance Reaction Event Type Pristiq diarrhea Drug Allergy Wellbutrin tinnitus Drug Allergy Prozac palpitations Drug Allergy Problems Problem Type Condition Code Onset Dates Condition Status Problem Cognitive deficits 438.0 Active Assessment Headache R51 Active Problem Tobacco use Z72.0 Active Problem Essential (primary) hypertension I10 Active Problem Chronic obstructive pulmonary disease, unspecified J44.9 Active Problem Cognitive deficits 438.0 Active Problem Gastro-esophageal reflux disease without esophagitis K21.9 Active Problem Hyperlipidemia, unspecified E78.5 Active Problem Post-traumatic stress disorder, chronic F43.12 Active Medications Medication Code System Code Instructions Start Date End Date Status Dosage ProAir HFA NDC 90691 CFC free 90 mcg/inh inhaled as needed every 4-6 hrs inhale 2 puffs four times a day Excedrin Migraine NDC 30304 250 mg-250 mg-65 mg orally every 6 hours Apr 2 tab(s) Seroquel XR NDC 743217 300 mg orally once a day (in the evening) 2 tablets aspirin NDC 53539 325 mg orally once a day 1 tab(s) Symbicort NDC 91068 160 mcg-4.5 mcg/inh inhaled 2 times a day 2 puff(s) clonazepam NDC 56906 0.5 mg orally 1 tab twice a day 1 tab(s) propranolol NDC 34121 10 mg orally 2 times a day May 01, 2015 1 tab( s) oxybutynin NDC 69948 5 mg orally 3 times a day 1 tab(s) Melatonin NDC 5609 3 mg orally once (at bedtime) 2 tablets lisinopril NDC 70414 10 mg orally once a day 1 tab(s) atorvastatin NDC 97593 20 mg orally once a day (at bedtime) 1 tab( s) gabapentin NDC 89752 300 mg orally 3 times a day for headaches Feb 06, 2013 1 caps Fetzima NDC 492861 40 mg orally once a day 1 cap(s) Procedures Procedure Coding System Code Date Office Visit, estab pt, Level 3 CPT-4 99246 May 04, 2015 Ketorolac CPT-4 J1885 May 04, 2015 Vital Signs Date/Time: May 04, 2015 Blood Pressure Systolic 180 mm Hg Temperature 99.1 F Weight 212 lbs Oximetry 96 % Pain Scale 10 0-10 Blood Pressure Diastolic 90 mm Hg Results No Known Results Summary Purpose eClinicalWorks Submission
--- OUTSIDE RECORDS SUMMARY | 2016-11-26 11:14 | XMS REPORT ---
Author Author ALISSA GONZALEZ Organization [employer] Address Unknown Phone Unavailable Care Team Providers Care Credit Negotiator Name Role Phone ALISSA GONZALEZ CP Unavailable [...]
--- OUTSIDE RECORDS SUMMARY | 2016-11-26 11:14 | XMS REPORT ---
Author Author ALISSA GONZALEZ Organization [employer] Address Unknown Phone Unavailable Care Team Providers Care Theater Set Production Designer Name Role Phone ALISSA GONZALEZ CP Unavailable [...]
--- OUTSIDE RECORDS SUMMARY | 2016-11-26 11:14 | XMS REPORT ---
Author Author ALISSA GONZALEZ Organization [employer]ClinicalWorks Address Unknown Phone Unavailable Care Team Providers Care Vehicle Check In Clerk Name Role Phone ALISSA GONZALEZ CP Unavailable [...] Instructions Start Date End Date Status Dosage Polyethylene Glycol NDC 75746 - orally as needed once a day August 13, 2015 240 mL Results No Known Results Summary Purpose eClinicalWorks Submission
--- OUTSIDE RECORDS SUMMARY | 2016-11-26 11:15 | XMS REPORT ---
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.85 Active Problem Cognitive deficits 438.0 Active Assessment Dysequilibrium 780.4 Active Assessment Cognitive deficits 438.0 Active Assessment Hyperlipidemia 272.4 Active Medications Medication Code System Code Instructions Start Date End [place] D[place] [address] 160 mcg-4.5 mcg/inh inhaled 2 times a day 2 puff(s) Therems M NDC 6341 Therapeutic Multiple Vitamins with Minerals orally once a day 1 tab([place]) [place] [address] - orally once a day 0 amlodipine NDC 97282 2.5 mg orally once a day 1 tab(s) atorvastatin NDC 24615 10 mg orally once a day (at bedtime) 1 tab( s) oxybutynin NDC 94302 5 mg orally 3 times a day 1 tab([place]) [place] [address] 75 mg orally once a day 1 tab(s) Melatonin NDC 5609 3 mg orally once (at bedtime) 2 tablets Seroquel NDC 28547 25 mg orally 2 times a day 1 tab([place]) [place] [address] 18 mcg sample inhaled once a day October 24, 2014 1 ea clonazepam NDC 80126 0.5 mg orally 1 tab twice a day and 2 at bedtime 1 tab(s) Seroquel XR NDC 093036 300 mg orally once a day (in the evening) 2 tablets ProAir HFA NDC 91861 CFC free 90 mcg/inh inhaled as needed every 4-6 hrs inhale 2 puffs [place] [address] 50 mg orally as needed at bedtime 1 tablets hydroxyzine NDC 54878 hydrochloride 50 mg orally 3 times a day 1 tab(s) Walker NDC 0 September 17, 2014 as directed omeprazole NDC 15531 20 mg orally once a day May 28, 2014 1 cap(s) Fetzima NDC 355372 80 mg orally once a day 1 cap(s) gabapentin NDC 66620 600 mg orally 3 times a day Feb 06, 2013 1 cap( s) Procedures Procedure Coding System Code Date Office Visit, estab pt, Level 4 CPT-4 73790 Nov 26, 2014 Vital Signs Date/Time: Nov 26, 2014 Blood Pressure Systolic 128 mm Hg Temperature 98.7 F Weight 196 lbs Pain Scale 7 OLIVA 0-10 Blood Pressure Diastolic 72 mm Hg Results No Known Results Summary Purpose eClinicalWorks Submission
== END 2016-11-25 19:19 | disposition home or self-care (01) ==
LOC: ER 15:45
DX: F91.1 Conduct disorder, childhood-onset type (principal); F02.81 Dementia in other diseases classified elsewhere, unspecified severity, with behavioral disturbance; K08.89 Other specified disorders of teeth and supporting structures
CPT/HCPCS: 36415; 80053; 85025; 96372; 99283

== ENCOUNTER 2017-03-15 15:40 | Emergency (ER) | payer MEDICARE, MEDICAID ==
[~2017-03-15] VITALS: Ht 170.2 cm; Wt 59.0 kg
[~2017-03-15 15:40] MED LIST: AMOX500C2 PO; DOCU-143 PO; HYDR-757 PO; LORA2ORA PO
[2017-03-15 17:26] LABS: BASOPHILS % (AUTO) 0 % (0-10); EOSINOPHILS # (AUTO) 0.1 10^3/uL (0.0-0.3); EOSINOPHILS % (AUTO) 1 % (0-10); LYMPHOCYTES # (AUTO) 2.3 X 10^3 (1.0-4.0); LYMPHOCYTES % (AUTO) 30 % (12-44); MEAN CORPUSCULAR HEMOGLOBIN 30 PG (25-34); MEAN CORPUSCULAR HGB CONC 34 G/DL (32-36); MEAN CORPUSCULAR VOLUME 87 FL (80-99); MONOCYTES # (AUTO) 0.7 X 10^3 (0.0-1.0); MONOCYTES % (AUTO) 9 % (0-12); NEUTROPHILS # (AUTO) 4.6 X 10^3 (1.8-7.8); NEUTROPHILS % (AUTO) 60 % (42-75); PLATELET COUNT 270 10^3/uL (130-400); RED BLOOD COUNT 4.84 10^6/uL (4.35-5.85); RED CELL DISTRIBUTION WIDTH 16.2 % (10.0-14.5); WHITE BLOOD COUNT 7.7 10^3/uL (4.3-11.0)
[2017-03-15 17:48] LABS: ALANINE AMINOTRANSFERASE 12 U/L (0-55); ALBUMIN 3.9 GM/DL (3.2-4.5); ALCOHOL < 10 MG/DL (<10); ANION GAP 10 MMOL/L (5-14); ASPARTATE AMINO TRANSFERASE 15 U/L (5-34); BILIRUBIN,TOTAL 0.2 MG/DL (0.1-1.0); BLOOD UREA NITROGEN 15 MG/DL (7-18); BUN/CREATININE RATIO 16; CALCIUM 9.9 MG/DL (8.5-10.1); CARBON DIOXIDE 24 MMOL/L (21-32); CHLORIDE 107 MMOL/L (98-107); CREATININE SERUM 0.96 MG/DL (0.60-1.30); GFR ESTIMATED 58; GLUCOSE 112 MG/DL (70-105); SALICYLATE < 5.0 MG/DL (5.0-20.0); SODIUM 141 MMOL/L (135-145); TOTAL PROTEIN 6.8 GM/DL (6.4-8.2)
[2017-03-15 17:54] LABS: ACETAMINOPHEN < 10 UG/ML (10-30)
[2017-03-15 18:05] LABS: BILIRUBIN,URINE NEGATIVE (NEGATIVE); KETONES,URINE NEGATIVE (NEGATIVE); LEUKOCYTE ESTERASE ,URINE 2+ (NEGATIVE); NITRITE,URINE NEGATIVE (NEGATIVE); PH,URINE 8 (5-9); PROTEIN,URINE NEGATIVE (NEGATIVE); UROBILINOGEN,URINE NORMAL (NORMAL)
--- NOTE | 2017-03-15 19:42 | ED Psychosocial ---
General Chief Complaint: Psych/Social Disorder Stated Complaint: SUICIDAL Nursing Triage Note: pt reports she has felt suicidal for over a month. pt reports she does not have any plan or know of anything that triggered her feelings. pt reports she saw dr gamboa today and he told the long term to bring her here. Source: patient Exam Limitations: no limitations History of Present Illness Time seen by provider: 19:05 Initial Comments 71-year-old female patient presents to the emergency Department with reports of suicidal ideation. Patient states she does have a plan, but refuses to give specific details of the plan. Patient resides at [facility]. Patient was previously seen at [facility] ED by Roly Bernardo APRN November 24, 2016. At that time patient was seen for dementia with behaviors and discharged to the [facility]. Patient denies homicidal ideation. Patient is aware that there is 2016. She also is aware that she resides at [facility] in that she lives in [place]. Timing/Duration: getting worse Severity: moderate Associated Symptoms: anxiety, impaired concentration, suicidal ideation Allergies and Home Medications Allergies Coded Allergies: bupropion (Verified Allergy, Unknown, 11/25/16) fluoxetine (Verified Allergy, Unknown, 11/25/16) lithium (Verified Allergy, Unknown, 11/25/16) Home Medications Amoxicillin 500 Mg Capsule, 500 MG PO TID, #21 Prescribed by: ROLY BERNARDO on 11/25/161857 Docusate Sodium 100 Mg Capsule, 100 MG PO DAILY, #14 Prescribed by: ROLY BERNARDO on 11/25/161857 Hydrocodone/Acetaminophen 1 Each Tablet, 1 EACH PO QID, #14 Prescribed by: ROLY BERNARDO on 11/25/161857 Lorazepam 2 Mg/1 Ml Oral.conc, 2 MG PO BID PRN for AGITATION, #10 Prescribed by: ROLY BERNARDO on 11/25/161857 Constitutional: No chills, No dizziness, No fever, No malaise EENTM: no symptoms reported Respiratory: No cough, No phlegm, No short of breath Cardiovascular: No chest pain, No palpitations, No syncope Gastrointestinal: no symptoms reported Genitourinary: no symptoms reported Musculoskeletal: no symptoms reported Skin: no symptoms reported Psychiatric/Neurological: See HPI, Anxiety, Depressed, Other (history of dementia with behaviors) All Other Systems Reviewed Negative Unless Noted: Yes (Negative excepted noted.) Past Jacaucm-Zmgmvo-Ogxcre Hx Patient Social History Recreational Drug Use: No Type Used: Cigarettes Recent Foreign Travel: No Contact w/Someone Who Travel: No Recent Infectious Disease Expo: No Physical Abuse: No Sexual Abuse: No Mistreated: No Fear: No Respiratory History of Respiratory Disorde: No Cardiovascular History of Cardiac Disorders: No Neurological History of Neurological Disord: Yes Neurological Disorders: Dementia Psychosocial History of Psychiatric Problem: Yes (dementia with behaviors) Behavioral Health Disorders: Anxiety, Bipolar, Schizophrenia, Depression Suicide Risk Score: 2 Reviewed Nursing Assessment Reviewed/Agree w Nursing PMH: Yes Family Medical History Other Family history unknown Physical Exam Vital Signs Vital Sign - Last 12Hours 03/15/17 16:47 Temp 98.2 Pulse 78 Resp 16 B/P (MAP) 137/81 (99) Pulse Ox 92 O2 Delivery Room Air Capillary Refill : Less Than 3 Seconds General Appearance: WD/WN, no apparent distress HEENT: PERRL/EOMI, pharynx normal Neck: supple, normal inspection Respiratory: lungs clear, normal breath sounds, no respiratory distress, no accessory muscle use Cardiovascular: normal peripheral pulses, regular rate, rhythm, no murmur Peripheral Pulses: 2+ Dorsalis Pedis (R), 2+ Left Dors-Pedis (L), 2+ Radial Pulses (R), 2+ Radial Pulses (L) Gastrointestinal: normal bowel sounds, non tender, soft, no organomegaly Extremities: no pedal edema, normal capillary refill Neurologic/Psychiatric: 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 tested, no motor/sensory deficits, alert, oriented x 3, depressed affect Appearance/Memory: appropriate appearance, appropriate insight, neat, no memory impairment Behavior/Eye Contact: avoids eye contact, refused to answer (occasionally refuses to answer questions), decreased rate of speech, compulsive, uncooperative, other (attempts several times to smack the sitter in the room.) Thoughts/Hallucinations: no apparent hallucination, obsessive Skin: normal color, warm/dry Progress/Results/Core Measures Results/Orders Lab Results Laboratory Tests Test 03/15/17 17:15 03/15/17 17:50 Range/Units White Blood Count 7.7 4.3-11.0 10^3/uL Red Blood Count 4.84 4.35-5.85 10^6/uL Hemoglobin 14.3 11.5-16.0 G/DL Hematocrit 42 35-52 % Mean Corpuscular Volume 87 80-99 FL Mean Corpuscular Hemoglobin 30 25-34 PG Mean Corpuscular Hemoglobin Concent 34 32-36 G/DL Red Cell Distribution Width 16.2 H 10.0-14.5 % Platelet Count 270 130-400 10^3/uL Mean Platelet Volume 10.0 7.4-10.4 FL Neutrophils (%) (Auto) 60 42-75 % Lymphocytes (%) (Auto) 30 12-44 % Monocytes (%) (Auto) 9 0-12 % Eosinophils (%) (Auto) 1 0-10 % Basophils (%) (Auto) 0 0-10 % Neutrophils # (Auto) 4.6 1.8-7.8 X 10^3 Lymphocytes # (Auto) 2.3 1.0-4.0 X 10^3 Monocytes # (Auto) 0.7 0.0-1.0 X 10^3 Eosinophils # (Auto) 0.1 0.0-0.3 10^3/uL Basophils # (Auto) 0.0 0.0-0.1 10^3/uL Sodium Level 141 135-145 MMOL/L Potassium Level 4.0 3.6-5.0 MMOL/L Chloride Level 107 98-107 MMOL/L Carbon Dioxide Level 24 21-32 MMOL/L Anion Gap 10 5-14 MMOL/L Blood Urea Nitrogen 15 7-18 MG/DL Creatinine 0.96 0.60-1.30 MG/DL Estimat Glomerular Filtration Rate 58 BUN/Creatinine Ratio 16 Glucose Level 112 H 70-105 MG/DL Calcium Level 9.9 8.5-10.1 MG/DL Total Bilirubin 0.2 0.1-1.0 MG/DL Aspartate Amino Transf (AST/SGOT) 15 5-34 U/L Alanine Aminotransferase (ALT/SGPT) 12 0-55 U/L Alkaline Phosphatase 95 40-136 U/L Total Protein 6.8 6.4-8.2 GM/DL Albumin 3.9 3.2-4.5 GM/DL Free Thyroxine 0.94 0.70-1.48 NG/DL TSH [place] Testing 0.32 L 0.35-4.94 UIU/ML Salicylates Level < 5.0 L 5.0-20.0 MG/DL Acetaminophen Level < 10 L 10-30 UG/ML Serum Alcohol < 10 <10 MG/DL Urine Color YELLOW Urine Clarity CLEAR Urine pH 8 5-9 Urine Specific [place] 1.015 L 1.016-1.022 Urine Protein NEGATIVE NEGATIVE Urine Glucose (UA) NEGATIVE NEGATIVE Urine Ketones NEGATIVE NEGATIVE Urine Nitrite NEGATIVE NEGATIVE Urine Bilirubin NEGATIVE NEGATIVE Urine Urobilinogen NORMAL NORMAL MG/DL Urine Leukocyte Esterase 2+ H NEGATIVE Urine RBC (Auto) NEGATIVE NEGATIVE Urine RBC NONE /HPF Urine WBC 2-5 /HPF Urine Squamous Epithelial Cells 5-10 /HPF Urine Crystals NONE /LPF Urine Bacteria TRACE /HPF Urine Casts NONE /LPF Urine Mucus NEGATIVE /LPF Urine Culture Indicated NO Urine Opiates Screen NEGATIVE NEGATIVE Urine Oxycodone Screen NEGATIVE NEGATIVE Urine Methadone Screen NEGATIVE NEGATIVE Urine Propoxyphene Screen NEGATIVE NEGATIVE Urine Barbiturates Screen NEGATIVE NEGATIVE Ur Tricyclic Antidepressants Screen NEGATIVE NEGATIVE Urine Phencyclidine Screen NEGATIVE NEGATIVE Urine Amphetamines Screen NEGATIVE NEGATIVE Urine Methamphetamines Screen NEGATIVE NEGATIVE Urine Benzodiazepines Screen POSITIVE H NEGATIVE Urine Cocaine Screen NEGATIVE NEGATIVE Urine Cannabinoids Screen NEGATIVE NEGATIVE My Orders Orders - RIKKI GRAY Ua Culture If Indicated (03/15/17 17:00) Cbc With Automated Diff (03/15/17 17:00) Comprehensive Metabolic Panel (03/15/17 17:00) Alcohol (03/15/17 17:00) Drug Screen Stat (Urine) (03/15/17 17:00) Acetaminophen (03/15/17 17:00) Salicylate (03/15/17 17:00) Ekg Tracing (03/15/17 17:00) Thyroid Analyzer (03/15/17 17:00) Free T4 (Free Thyroxine) (03/15/17 17:15) General/Regular (03/15/17 Dinner) Lorazepam Tablet (Ativan Tablet) (03/15/17 22:00) Medications Given in ED Current Medications Medications Dose Ordered Sig/Sachin Route Start Time Stop Time Status Last Admin Dose Admin Lorazepam 0.5 mg ONCE ONCE PO 03/15/17 22:00 03/15/17 22:01 DC 03/15/17 22:03 0.5 MG Vital Signs/I&O Vital Sign - Last 12Hours 03/15/17 03/15/17 16:47 22:21 Temp 98.2 98.2 Pulse 78 80 Resp 16 16 B/P (MAP) 137/81 (99) Pulse Ox 92 94 O2 Delivery Room Air Blood Pressure Mean: 99 ECG Initial ECG Impression Date: Mar 15, 2017 Initial ECG Impression Time: 17:10 Initial ECG Rate: 78 Initial ECG Rhythm: Normal Sinus Initial ECG Intervals: Normal Initial ECG Impression: Normal Initial ECG Comparisson: No Previous ECG Available Departure Communication (Admissions) Progress Notes Patient seen and evaluated. Baseline labs and EKG obtained. Will await results and then contact [facility]. [address] [facility] behavioral [facility] contacted. Komal to evaluate patient in the ED. [address] [facility] accepts the patient to their inpatient behavioral health service for further evaluation and treatment. Patient notified of plan for transfer to [facility]. Patient agreeable to transfer for inpatient psychiatric treatment. [address] [facility] unable to transport patient due to combative and aggressive behaviors. [facility] to [facility] to aggressive and combative behaviors. EMS contacted for transport to [facility]. Plan for transfer discussed with Dr. Marion, he agrees with the plan of care. Impression Impression: Primary Impression: Depression with suicidal ideation Additional Impression: Dementia with behavioral disturbance Qualified Codes: F03.91 - Unspecified dementia with behavioral disturbance Disposition: 65 XFER TO PSYCH HOSP/UNIT Condition: Stable Transfer Time Spoke to Accepting Phy: 19:[address] Anne graciously accepts patient to the inpatient [facility] Transfer Facility: [facility] Method of Transfer: EMS Departure-Patient Inst. Referrals: JESSE GAMBOA DO (PCP/Family) Primary Care Physician RIKKI GRAY Mar 15, 2017 19:41
[2017-03-15] MEDS ORDERED: LORazepam 0.5 MG (ATIVAN) TABLET PO ONE (22:00)
[2017-03-15 22:21] VITALS: BP 130/78
== END 2017-03-15 22:21 ==
LOC: EDUNIT# 15:40 → ER 15:41
DX: F32.9 Major depressive disorder, single episode, unspecified (principal); R45.851 Suicidal ideations; F03.91 Unspecified dementia, unspecified severity, with behavioral disturbance; F41.9 Anxiety disorder, unspecified; F20.9 Schizophrenia, unspecified
CPT/HCPCS: 36415; 80053; 80306; 80320; 80329; 81000; 84439; 84443; 85025; 93005

== ENCOUNTER 2017-03-25 13:04 | Emergency (ER) | payer MEDICARE, MEDICAID ==
[~2017-03-25] VITALS: Ht 170.2 cm; Wt 59.0 kg
[2017-03-25] MEDS ORDERED: NS IV 1000 ML 1,000 ML IV ONE (13:59)
[2017-03-25] MEDS ORDERED: LORazepam INJ 2 MG/ML (ATIVAN) VIAL IVP ONE (14:00)
[2017-03-25 14:03] LABS: BASOPHILS % (AUTO) 0 % (0-10); EOSINOPHILS % (AUTO) 0 % (0-10); LYMPHOCYTES # (AUTO) 1.3 X 10^3 (1.0-4.0); LYMPHOCYTES % (AUTO) 15 % (12-44); MEAN CORPUSCULAR HEMOGLOBIN 30 PG (25-34); MEAN CORPUSCULAR HGB CONC 34 G/DL (32-36); MEAN CORPUSCULAR VOLUME 88 FL (80-99); MEAN PLATELET VOLUME 10.5 FL (7.4-10.4); MONOCYTES # (AUTO) 0.8 X 10^3 (0.0-1.0); MONOCYTES % (AUTO) 9 % (0-12); NEUTROPHILS # (AUTO) 6.7 X 10^3 (1.8-7.8); NEUTROPHILS % (AUTO) 76 % (42-75); PLATELET COUNT 301 10^3/uL (130-400); RED BLOOD COUNT 5.46 10^6/uL (4.35-5.85); RED CELL DISTRIBUTION WIDTH 16.2 % (10.0-14.5); WHITE BLOOD COUNT 8.8 10^3/uL (4.3-11.0)
--- NOTE | 2017-03-25 14:11 | ED Psychosocial ---
General Chief Complaint: Psych/Social Disorder Stated Complaint: MENTAL EVAL Source: patient, alf records, caregiver Exam Limitations: clinical condition History of Present Illness Time seen by provider: 13:23 Initial Comments This 71-year-old woman with dementia presents to the emergency room with behavioral health disturbances. She had recently been admitted to the [facility] health unit in [place]. She returned to the alf setting on March 22. Reportedly she had been taken off of Ativan. Hydrocodone upon readmission to the alf. Patient has not taken any of her medications yesterday or today. She is not eating or drinking well and has become combative with hitting behaviors. She seems depressed and distressed. She was sent to the emergency room for further evaluation. Labs from yesterday were reviewed and showed no gross abnormalities. Patient is mostly cooperative. She does do some swatting/hitting if approached to abruptly. She denies any pain. Patient reportedly was initially sent to [facility] because she had made suicidal threats after she was not allowed to leave the building to smoke. Allergies and Home Medications Allergies Coded Allergies: bupropion (Verified Allergy, Unknown, 11/25/16) fluoxetine (Verified Allergy, Unknown, 11/25/16) lithium (Verified Allergy, Unknown, 11/25/16) Home Medications Amoxicillin 500 Mg Capsule, 500 MG PO TID, #21 Prescribed by: ROLY MYERS on 11/25/16 1858 Cephalexin 500 Mg Capsule, 500 MG PO QID, #28 Prescribed by: JARED BEST on 03/25/17 1523 Docusate Sodium 100 Mg Capsule, 100 MG PO DAILY, #14 Prescribed by: ROLY MYERS on 11/25/16 1858 Hydrocodone/Acetaminophen 1 Each Tablet, 1 EACH PO QID, #14 Prescribed by: ROLY MYERS on 11/25/16 1858 Lorazepam 2 Mg/1 Ml Oral.conc, 2 MG PO BID PRN for AGITATION, #10 Prescribed by: ROLY MYERS on 11/25/16 1858 Constitutional: no symptoms reported EENTM: no symptoms reported Respiratory: no symptoms reported Cardiovascular: no symptoms reported Gastrointestinal: no symptoms reported Genitourinary: no symptoms reported : No Musculoskeletal: no symptoms reported Skin: no symptoms reported Psychiatric/Neurological: See HPI Past Zwwhvnh-Vzkypv-Okmghm Hx Patient Social History Alcohol Use: Denies Use Recreational Drug Use: No Smoking Status: Current Everyday Smoker Type Used: Cigarettes Recent Foreign Travel: No Contact w/Someone Who Travel: No Surgeries History of Surgeries: No Respiratory History of Respiratory Disorde: Yes Respiratory Disorders: COPD Currently Using CPAP: No Currently Using BIPAP: No Cardiovascular History of Cardiac Disorders: No Cardiac Disorders: High Cholesterol, Hypertension Neurological History of Neurological Disord: Yes Neurological Disorders: Dementia Reproductive System : No Genitourinary History of Genitourinary Disor: Yes (URINARY INCONTINENCE) Gastrointestinal History of Gastrointestinal Di: Yes Gastrointestinal Disorders: Gastroesophageal Reflux Musculoskeletal History of Musculoskeletal Dis: Yes (MUSLCE WEAKNESS) Endocrine History of Endocrine Disorders: No HEENT History of HEENT Disorders: No Cancer History of Cancer: No Psychosocial History of Psychiatric Problem: Yes (dementia with behaviors) Behavioral Health Disorders: Anxiety, Bipolar, Schizophrenia, Depression Integumentary History of Skin or Integumenta: No Physical Exam Vital Signs Vital Sign - Last 12Hours 03/25/17 13:41 Temp 98.0 Pulse 87 Resp 18 B/P (MAP) 143/81 (101) Pulse Ox 94 Capillary Refill : General Appearance: WD/WN, no apparent distress HEENT: PERRL/EOMI, TMs normal, pharynx normal, other (very poor dentition with no overt abscesses or gingival inflammation) Neck: normal inspection Respiratory: lungs clear, normal breath sounds, no respiratory distress, no accessory muscle use Cardiovascular: regular rate, rhythm, no edema, no murmur Gastrointestinal: normal bowel sounds, non tender, soft Extremities: normal inspection, no pedal edema 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 Shuffled gait) Appearance/Memory: appropriate appearance Behavior/Eye Contact: cooperative, good eye contact Skin: normal color, warm/dry Progress/Results/Core Measures Results/Orders Lab Results Laboratory Tests Test 03/25/17 13:56 03/25/17 14:25 Range/Units White Blood Count 8.8 4.3-11.0 10^3/uL Red Blood Count 5.46 4.35-5.85 10^6/uL Hemoglobin 16.2 H 11.5-16.0 G/DL Hematocrit 48 35-52 % Mean Corpuscular Volume 88 80-99 FL Mean Corpuscular Hemoglobin 30 25-34 PG Mean Corpuscular Hemoglobin Concent 34 32-36 G/DL Red Cell Distribution Width 16.2 H 10.0-14.5 % Platelet Count 301 130-400 10^3/uL Mean Platelet Volume 10.5 H 7.4-10.4 FL Neutrophils (%) (Auto) 76 H 42-75 % Lymphocytes (%) (Auto) 15 12-44 % Monocytes (%) (Auto) 9 0-12 % Eosinophils (%) (Auto) 0 0-10 % Basophils (%) (Auto) 0 0-10 % Neutrophils # (Auto) 6.7 1.8-7.8 X 10^3 Lymphocytes # (Auto) 1.3 1.0-4.0 X 10^3 Monocytes # (Auto) 0.8 0.0-1.0 X 10^3 Eosinophils # (Auto) 0.0 0.0-0.3 10^3/uL Basophils # (Auto) 0.0 0.0-0.1 10^3/uL Sodium Level 139 135-145 MMOL/L Potassium Level 3.5 L 3.6-5.0 MMOL/L Chloride Level 106 98-107 MMOL/L Carbon Dioxide Level 23 21-32 MMOL/L Anion Gap 10 5-14 MMOL/L Blood Urea Nitrogen 27 H 7-18 MG/DL Creatinine 0.90 0.60-1.30 MG/DL Estimat Glomerular Filtration Rate > 60 BUN/Creatinine Ratio 30 Glucose Level 268 H 70-105 MG/DL Calcium Level 10.3 H 8.5-10.1 MG/DL Total Bilirubin 0.5 0.1-1.0 MG/DL Aspartate Amino Transf (AST/SGOT) 36 H 5-34 U/L Alanine Aminotransferase (ALT/SGPT) 42 0-55 U/L Alkaline Phosphatase 95 40-136 U/L Total Protein 7.5 6.4-8.2 GM/DL Albumin 4.3 3.2-4.5 GM/DL TSH [place] Testing 0.41 0.35-4.94 UIU/ML Urine Color COLTON H Urine Clarity SLIGHTLY CLOUDY Urine pH 5 5-9 Urine Specific [place] 1.025 H 1.016-1.022 Urine Protein 2+ H NEGATIVE Urine Glucose (UA) 4+ H NEGATIVE Urine Ketones 2+ H NEGATIVE Urine Nitrite POSITIVE H NEGATIVE Urine Bilirubin NEGATIVE NEGATIVE Urine Urobilinogen 4 H NORMAL MG/DL Urine Leukocyte Esterase 1+ H NEGATIVE Urine RBC (Auto) 1+ H NEGATIVE Urine RBC RARE /HPF Urine WBC 10-25 H /HPF Urine Squamous Epithelial Cells 10-25 H /HPF Urine Crystals NONE /LPF Urine Bacteria LARGE H /HPF Urine Casts NONE /LPF Urine Mucus NEGATIVE /LPF Urine Culture Indicated YES My Orders Orders - JARED FAUSTIN MD Thyroid Analyzer (03/25/17 13:59) Lorazepam Injection (Ativan Injection) (03/25/17 14:00) Saline Lock/Iv-Start (03/25/17 13:59) Ns Iv 1000 Ml (Sodium Chloride 0.9%) (03/25/17 13:59) Haloperidol Tablet (Haldol Tablet) (03/25/17 15:00) Ceftriaxone Injection (Rocephin Injectio (03/25/17 15:00) Ceftriaxone Injection (Rocephin Injectio (03/25/17 15:00) Lidocaine 1% Injection (Xylocaine 1% Inj (03/25/17 15:00) Lorazepam Tablet (Ativan Tablet) (03/25/17 15:00) Lidocaine Pf 1% 5 Ml Injection (Xylocain (03/25/17 15:00) Medications Given in ED Current Medications Medications Dose Ordered Sig/Sachin Route Start Time Stop Time Status Last Admin Dose Admin Ceftriaxone Sodium 1,000 mg ONCE ONCE IM 03/25/17 15:00 03/25/17 15:01 DC 03/25/17 15:25 1,000 MG Haloperidol 1 mg ONCE ONCE PO 03/25/17 15:00 03/25/17 15:01 DC 03/25/17 15:10 1 MG Lidocaine HCl 2.1 ml ONCE ONCE INJ 03/25/17 15:00 03/25/17 15:01 DC 03/25/17 15:13 2.1 ML Lorazepam 0.5 mg ONCE ONCE IVP 03/25/17 14:00 03/25/17 14:01 DC 03/25/17 14:17 0.5 MG Lorazepam 0.5 mg ONCE ONCE PO 03/25/17 15:00 03/25/17 15:01 DC 03/25/17 15:09 0.5 MG Sodium Chloride 1,000 ml @ 0 mls/hr Q0M ONCE IV 03/25/17 13:59 03/25/17 14:00 DC 03/25/17 14:16 1,000 MLS/HR Vital Signs/I&O Vital Sign - Last 12Hours 03/25/17 13:41 Temp 98.0 Pulse 87 Resp 18 B/P (MAP) 143/81 (101) Pulse Ox 94 Progress Note #1: Time: 14:38 Progress Note Patient was cooperative with IV start, blood draw, and urine collection. After IV was started, she was given 0.5 mg of Ativan. She is calm and resting in bed. She drank an entire class of water eagerly. Progress Note #2: Time: 14:58 Progress Note Patient has now removed her IV. She is walking the halls with staff. Urinary tract infection has been identified on urinalysis. A gram of Rocephin will be given by IM route. We will attempt to give her oral Ativan and Haldol as well. Progress Note #3: Time: 15:21 Progress Note Patient accepted oral medications from ER staff. I reviewed the case with Dr. Gamboa. He is going to make medication adjustments to do long-acting injectable Haldol. I will write for antibiotics to continue treating her urinary tract infection. He will follow-up on the culture sensitivity. Patient will be returned to the alf. Departure Impression Impression: Primary Impression: Urinary tract infection Qualified Codes: N39.0 - Urinary tract infection, site not specified Additional Impressions: Agitation Medical non-compliance Disposition: 01 HOME, SELF-CARE Condition: Improved Departure-Patient Inst. Decision time for Depature: 15:22 Referrals: JESSE GAMBOA DO (PCP/Family) Primary Care Physician Patient Instructions: Urinary Tract Infection, Adult (DC) Add. Discharge Instructions: Encourage plenty of clear liquids. Resume medications as previously ordered. Look for new orders from Dr. Gamboa on long-acting injectable Haldol and injectable Ativan. Complete antibiotics as prescribed. Follow-up on urine culture results in [address] communicate to Dr[address] Gamboa. Return to care if symptoms worsen. All discharge instructions reviewed with patient and/or family. Voiced understanding. Scripts Cephalexin (Keflex) 500 Mg Capsule 500 MG PO QID, #28 CAP Prov: JARED FAUSTIN MD 03/25/17 Copy Copies To 1: JESSE GAMBOA JOSHUA T MD Mar 25, 2017 14:11
[2017-03-25 14:24] LABS: ALANINE AMINOTRANSFERASE 42 U/L (0-55); ALBUMIN 4.3 GM/DL (3.2-4.5); ANION GAP 10 MMOL/L (5-14); ASPARTATE AMINO TRANSFERASE 36 U/L (5-34); BILIRUBIN,TOTAL 0.5 MG/DL (0.1-1.0); BLOOD UREA NITROGEN 27 MG/DL (7-18); BUN/CREATININE RATIO 30; CALCIUM 10.3 MG/DL (8.5-10.1); CARBON DIOXIDE 23 MMOL/L (21-32); CHLORIDE 106 MMOL/L (98-107); GFR ESTIMATED > 60; GLUCOSE 268 MG/DL (70-105); POTASSIUM 3.5 MMOL/L (3.6-5.0); SODIUM 139 MMOL/L (135-145); TOTAL PROTEIN 7.5 GM/DL (6.4-8.2)
[2017-03-25 14:32] LABS: BILIRUBIN,URINE NEGATIVE (NEGATIVE); KETONES,URINE 2+ (NEGATIVE); LEUKOCYTE ESTERASE ,URINE 1+ (NEGATIVE); NITRITE,URINE POSITIVE (NEGATIVE); PH,URINE 5 (5-9); PROTEIN,URINE 2+ (NEGATIVE); UROBILINOGEN,URINE 4 MG/DL (NORMAL)
[2017-03-25] MEDS ORDERED: LORazepam 0.5 MG (ATIVAN) TABLET PO ONE (15:00)
[2017-03-25] MEDS ORDERED: LIDOCAINE 1% INJ 20 ML (XYLOCAINE) VIAL INJ ONE (15:00)
[2017-03-25] MEDS ORDERED: LIDOCAINE PF 1% 5 ML (XYLOCAINE) AMP ONE (15:00)
[2017-03-25] MEDS ORDERED: cefTRIAXone INJECTION 1,000 MG in NS (IVPB) 50 ML IV ONE (15:00)
[2017-03-25] MEDS ORDERED: HALOPERIDOL 0.5 MG (HALDOL) TAB PO ONE (15:00)
[2017-03-25] MEDS ORDERED: cefTRIAXone 1 GM (ROCEPHIN) VIAL IM ONE (15:00)
[2017-03-25] MEDS ORDERED: CEPH-507 PO (15:23)
[2017-03-25 15:30] VITALS: BP 143/81
== END 2017-03-25 16:15 | disposition home or self-care (01) ==
LOC: EDUNIT# 13:04 → ER 13:07
DX: N39.0 Urinary tract infection, site not specified (principal); R45.1 Restlessness and agitation; J44.9 Chronic obstructive pulmonary disease, unspecified; E78.00 Pure hypercholesterolemia, unspecified; I10 Essential (primary) hypertension; F03.90 Unspecified dementia, unspecified severity, without behavioral disturbance, psychotic disturbance, mood disturbance, and anxiety; K21.9 Gastro-esophageal reflux disease without esophagitis; F41.9 Anxiety disorder, unspecified; F31.9 Bipolar disorder, unspecified; F20.9 Schizophrenia, unspecified; F17.210 Nicotine dependence, cigarettes, uncomplicated; Z87.448 Personal history of other diseases of urinary system; Z91.14 Patient's other noncompliance with medication regimen
CPT/HCPCS: 36415; 80053; 81000; 84443; 85025; 87077; 87088; 87186; 96361; 96372; 96374

== ENCOUNTER 2017-04-04 12:47 | Observation (INO) | payer MEDICARE, MEDICAID ==
[~2017-04-04] VITALS: Ht 170.2 cm; Wt 59.0 kg
[~2017-04-04 12:47] MED LIST changes: +CEPH-507 PO
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
--- NOTE | 2017-04-04 13:22 | Diagnostic Imaging Report ---
Indication: Congestion cough Comparison: None Findings: 2 views of the chest obtained. Heart size is normal. The pulmonary vessels appear unremarkable. There is no pneumothorax, mediastinal widening or pleural demonstrated. There is a pacer device in the left chest. Atrial and ventricular leads appear intact. There is no pneumothorax any subtle widening or pleural fluid. Lungs are clear. The osseous structures appear unremarkable. There is some flattening of the diaphragms suggestive of COPD. IMPRESSION: COPD. No acute cardiopulmonary abnormalities demonstrated. Dictated by: Dictated on workstation # [id number]
[2017-04-04 13:33] LABS: BASOPHILS % (AUTO) 0 % (0-10); EOSINOPHILS % (AUTO) 1 % (0-10); HEMATOCRIT 43 % (35-52); HEMOGLOBIN 14.5 G/DL (11.5-16.0); LYMPHOCYTES # (AUTO) 2.1 X 10^3 (1.0-4.0); LYMPHOCYTES % (AUTO) 29 % (12-44); MEAN CORPUSCULAR HEMOGLOBIN 30 PG (25-34); MEAN CORPUSCULAR HGB CONC 34 G/DL (32-36); MEAN CORPUSCULAR VOLUME 88 FL (80-99); MEAN PLATELET VOLUME 10.4 FL (7.4-10.4); MONOCYTES # (AUTO) 0.5 X 10^3 (0.0-1.0); MONOCYTES % (AUTO) 7 % (0-12); NEUTROPHILS # (AUTO) 4.6 X 10^3 (1.8-7.8); NEUTROPHILS % (AUTO) 64 % (42-75); PLATELET COUNT 241 10^3/uL (130-400); RED BLOOD COUNT 4.87 10^6/uL (4.35-5.85); RED CELL DISTRIBUTION WIDTH 16.6 % (10.0-14.5); WHITE BLOOD COUNT 7.2 10^3/uL (4.3-11.0)
[2017-04-04 13:53] LABS: ALANINE AMINOTRANSFERASE 16 U/L (0-55); ALBUMIN 3.8 GM/DL (3.2-4.5); ALKALINE PHOSPHATASE 98 U/L (40-136); BILIRUBIN,TOTAL 0.2 MG/DL (0.1-1.0); BUN/CREATININE RATIO 15; CARBON DIOXIDE 21 MMOL/L (21-32); CHLORIDE 105 MMOL/L (98-107); CREATININE SERUM 0.74 MG/DL (0.60-1.30); GFR ESTIMATED > 60; GLUCOSE 178 MG/DL (70-105); POTASSIUM 4.2 MMOL/L (3.6-5.0); SALICYLATE < 5.0 MG/DL (5.0-20.0); SODIUM 137 MMOL/L (135-145); TOTAL PROTEIN 6.4 GM/DL (6.4-8.2)
[2017-04-04 13:55] LABS: ACETAMINOPHEN < 10 UG/ML (10-30)
[2017-04-04 14:54] LABS: BILIRUBIN,URINE NEGATIVE (NEGATIVE); CLARITY,URINE SLIGHTLY CLOUDY; COLOR,URINE YELLOW; GLUCOSE, URINE (UA) NEGATIVE (NEGATIVE); KETONES,URINE NEGATIVE (NEGATIVE); LEUKOCYTE ESTERASE ,URINE NEGATIVE (NEGATIVE); NITRITE,URINE NEGATIVE (NEGATIVE); PH,URINE 8 (5-9); PROTEIN,URINE NEGATIVE (NEGATIVE); UROBILINOGEN,URINE NORMAL (NORMAL)
[2017-04-04 15:03] LABS: AMPHETAMINE SCREEN, URINE NEGATIVE (NEGATIVE); BARBITURATE SCREEN URINE NEGATIVE (NEGATIVE); BENZODIAZEPINES SCREEN URINE POSITIVE (NEGATIVE); CANNABINOID SCREEN, URINE NEGATIVE (NEGATIVE); COCAINE SCREEN URINE NEGATIVE (NEGATIVE); METHADONE STAT NEGATIVE (NEGATIVE); METHAMPHETAMINE SCREEN URINE S NEGATIVE (NEGATIVE); OPIATE SCREEN URINE NEGATIVE (NEGATIVE); OXYCODONE STAT NEGATIVE (NEGATIVE); PROPOXYPHENE STAT NEGATIVE (NEGATIVE); TRICYCLIC ANTIDEPRESSANTS SCRE NEGATIVE (NEGATIVE)
[2017-04-04 15:17] LABS: BACTERIA,URINE FEW /HPF; WBC,URINE RARE /HPF
[2017-04-04] MEDS ORDERED: HALOPERIDOL 5 MG/ML (HALDOL) AMP IM PRN (20:45)
[2017-04-04] MEDS ORDERED: HALOPERIDOL 0.5 MG (HALDOL) TAB PO PRN (20:45)
[2017-04-04] MEDS ORDERED: NICOTINE 14 MG (NICODERM) PATCH TD ONE (21:00)
[2017-04-04] MEDS ORDERED: NICOTINE 21 MG (NICODERM) PATCH ONE (21:56)
[2017-04-04 23:41] VITALS: BP 136/68
[2017-04-05 04:05] VITALS: BP 133/71
[2017-04-05] MEDS: NICOTINE 14 MG (NICODERM) PATCH TD SCH (08:50)
[2017-04-05] MEDS: LORazepam 0.5 MG (ATIVAN) TABLET PO PRN ×2 (08:50→21:08)
[2017-04-05 08:59] VITALS: BP 129/69
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
[2017-04-05] MEDS ORDERED: ACETAMINOPHEN 325 MG TABLET/CAPLET (TYLENOL) ONE (15:34)
[2017-04-05] MEDS: ACETAMINOPHEN 325 MG TABLET/CAPLET (TYLENOL) PO PRN (15:38)
[2017-04-05 15:43] VITALS: BP 116/64
[2017-04-05 23:55] VITALS: BP 115/68
[2017-04-06 08:00] VITALS: BP 144/84
--- NOTE | 2017-04-06 08:18 | Progress Note (SOAP) ---
Subjective Time Seen by Provider: 08:13 Subjective/Events-last exam placement for behaviors. Social behavior. History of dementia. Bipolar Acute agitation and belligerent behavior. 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 Objective Exam Vital Signs Date Time Temp Pulse Resp B/P (MAP) Pulse Ox O2 Delivery O2 Flow Rate FiO2 04/05/17 23:55 97.1 64 20 115/68 (84) 95 Room Air 04/05/17 20:00 Room Air 04/05/17 15:43 98.6 69 20 116/64 (81) 96 Room Air 04/05/17 08:59 98.0 59 20 129/69 (89) 95 Room Air I & O 04/06/17 07:00 Intake Total 1280 ml Balance 1280 ml Capillary Refill : Less Than 3 Seconds General Appearance: No Apparent Distress Neck: Full Range of Motion Respiratory: No Accessory Muscle Use, No Respiratory Distress Cardiovascular: Regular Rate, Rhythm Assessment/Plan Assessment/Plan Assess & Plan/Chief Complaint social behavior disorder. Tobacco abuse. Bipolar. acute agitation and belligerent behavior Clinical Quality Measures DVT/VTE Risk/Contraindication: Risk Factor Score Per Nursin RFS Level Per Nursing on Admit: 3=High JESSE GAMBOA DO Apr 06, 2017 08:17
[2017-04-06] MEDS: NICOTINE 14 MG (NICODERM) PATCH TD SCH (09:19)
[2017-04-06] MEDS: LORazepam 0.5 MG (ATIVAN) TABLET PO PRN (13:29)
[2017-04-06] MEDS: ACETAMINOPHEN 325 MG TABLET/CAPLET (TYLENOL) PO PRN ×2 (13:29→20:53)
[2017-04-06] MEDS ORDERED: DONE10TA41 PO (13:54)
[2017-04-06] MEDS ORDERED: OXYB5TAB9 PO (13:54)
[2017-04-06] MEDS ORDERED: LORA2VIA3 IM (13:54)
[2017-04-06] MEDS ORDERED: ALBU2.5V4 IH (13:54)
[2017-04-06] MEDS ORDERED: DOCU100C37 PO (13:54)
[2017-04-06] MEDS ORDERED: SODI30SP2 NSEACH (13:54)
[2017-04-06] MEDS ORDERED: MULT-1049 PO (13:54)
[2017-04-06] MEDS ORDERED: CYAN10007 PO (13:54)
[2017-04-06] MEDS ORDERED: PANT40TA3 PO (13:54)
[2017-04-06] MEDS ORDERED: CLOP75TA28 PO (13:54)
[2017-04-06] MEDS ORDERED: MELA1TAB27 PO (13:54)
[2017-04-06] MEDS ORDERED: LORA0.5T PO (13:54)
[2017-04-06] MEDS ORDERED: SIMV20TA3 PO (13:54)
[2017-04-06] MEDS ORDERED: MEMA10TA22 PO (13:54)
[2017-04-06] MEDS ORDERED: GABA-488 PO (13:54)
[2017-04-06] MEDS ORDERED: AMLO5TAB2 PO (13:54)
[2017-04-06] MEDS ORDERED: MAGN400O7 PO (13:54)
[2017-04-06] MEDS ORDERED: HALO50AM2 IM (13:54)
[2017-04-06] MEDS ORDERED: FLUT1DIS26 IH (13:54)
[2017-04-06 16:00] VITALS: BP 133/84
[2017-04-06 19:23] VITALS: BP 140/71
[2017-04-06 23:19] VITALS: BP 127/83
--- NOTE | 2017-04-07 07:48 | Progress Note (SOAP) ---
Subjective Time Seen by Provider: 07:45 Subjective/Events-last exam patient is resting comfortably today. Patient has not been agitated. 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 Bipolar. Acute agitation and belligerent behavior not shown in the hospital Objective Exam Vital Signs Date Time Temp Pulse Resp B/P (MAP) Pulse Ox O2 Delivery O2 Flow Rate FiO2 04/06/17 23:19 97.1 69 20 127/83 (98) 94 Room Air 04/06/17 19:23 97.4 61 18 140/71 (94) 95 Room Air 04/06/17 16:00 98.6 72 20 133/84 (100) 93 Room Air 04/06/17 08:00 99.8 76 20 144/84 (104) 98 Room Air I & O 04/07/17 07:00 Intake Total 1180 ml Balance 1180 ml Capillary Refill : Less Than 3 Seconds General Appearance: No Apparent Distress, WD/WN Assessment/Plan Assessment/Plan Assess & Plan/Chief Complaint social behavior disorder. Tobacco abuse. Bipolar. acute agitation and belligerent behavior. . 04/07/17. Social behavior disorder. Tobacco abuse. Bipolar. Acute agitation and belligerent behavior. Patient in the hospital has not shown any agitation. Waiting for placement to nursing attendant Clinical Quality Measures DVT/VTE Risk/Contraindication: Risk Factor Score Per Nursin RFS Level Per Nursing on Admit: 3=High JESSE GAMBOA DO Apr 07, 2017 07:48
[2017-04-07 08:00] VITALS: BP 136/77
[2017-04-07] MEDS ORDERED: LORazepam INJ 2 MG/ML (ATIVAN) VIAL IM PRN (08:00)
[2017-04-07] MEDS ORDERED: LORazepam 0.5 MG (ATIVAN) TABLET PO PRN (08:00)
[2017-04-07] MEDS ORDERED: MILK OF MAGNESIA 400 MG/5 ML 30 ML UDC PO PRN (08:00)
[2017-04-07] MEDS: GABAPENTIN 300 MG (NEURONTIN) CAP PO SCH ×2 (08:21→19:44)
[2017-04-07] MEDS: OXYBUTYNIN (DITROPAN) 5 MG TAB PO SCH ×2 (08:21→19:44)
[2017-04-07] MEDS: NICOTINE 14 MG (NICODERM) PATCH TD SCH (08:21)
[2017-04-07] MEDS: MEMANTINE 10 MG (NAMENDA) TABLET PO SCH ×2 (08:21→19:44)
[2017-04-07] MEDS: DONEPEZIL 10 MG (ARICEPT) TAB PO SCH (08:22)
[2017-04-07] MEDS: PANTOPRAZOLE 40 MG (PROTONIX) TAB PO SCH (08:22)
[2017-04-07] MEDS: DOCUSATE SODIUM 100 MG (COLACE) CAP PO SCH (08:22)
[2017-04-07] MEDS: CLOPIDOGREL 75 MG (PLAVIX) TABLET PO SCH (08:22)
[2017-04-07] MEDS: amLODIPine 5 MG (NORVASC) TAB PO SCH (08:22)
[2017-04-07] MEDS: RT-ALBUTEROL SULF 2.5 MG/3 ML PRE-MIX VIAL INH SCH ×3 (10:06→19:04)
[2017-04-07] MEDS: RT-ADVAIR HFA 115/21 MCG PER PUFF IH SCH ×2 (10:06→19:05)
[2017-04-07 15:53] VITALS: BP 114/78
[2017-04-07] MEDS ORDERED: SIMvastatin 20 MG (ZOCOR) TAB PO SCH (21:00)
[2017-04-08] VITALS: BP 116/78
[2017-04-08] MEDS: PANTOPRAZOLE 40 MG (PROTONIX) TAB PO SCH (05:35)
[2017-04-08] MEDS: RT-ALBUTEROL SULF 2.5 MG/3 ML PRE-MIX VIAL INH SCH (07:13)
[2017-04-08] MEDS: RT-ADVAIR HFA 115/21 MCG PER PUFF IH SCH (07:13)
--- NOTE | 2017-04-08 08:09 | Progress Note (SOAP) ---
Subjective Time Seen by Provider: 08:05 Subjective/Events-last exam social behavior disorder. Tobacco abuse. Bipolar. Acute agitation and belligerence behavior. Dementia. Patient to be transferred today to [place] to psych unit Objective Exam Vital Signs Date Time Temp Pulse Resp B/P (MAP) Pulse Ox O2 Delivery O2 Flow Rate FiO2 04/08/17 07:13 91 Room Air 04/08/17 00:00 96.7 77 20 116/78 (91) 94 Room Air 04/07/17 19:05 93 Room Air 04/07/17 15:53 97.9 83 20 114/78 (90) 93 Room Air 04/07/17 10:06 92 Room Air I & O 04/08/17 07:00 Intake Total 2360 ml Balance 2360 ml Capillary Refill : Less Than 3 Seconds General Appearance: No Apparent Distress, WD/WN HEENT: Normal ENT Inspection Neck: Full Range of Motion Respiratory: No Accessory Muscle Use, No Respiratory Distress Cardiovascular: Regular Rate, Rhythm Assessment/Plan Assessment/Plan Assess & Plan/Chief Complaint social behavior disorder. Tobacco abuse. Bipolar. acute agitation and belligerent behavior. . 04/07/17. Social behavior disorder. Tobacco abuse. Bipolar. Acute agitation and belligerent behavior. Patient in the hospital has not shown any agitation. 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 . 04/08/17. Social behavior disorder. Tobacco abuse. Bipolar. Acute agitation and belligerent behavior. Patient be transferred today to psych unit Clinical Quality Measures DVT/VTE Risk/Contraindication: Risk Factor Score Per Nursin RFS Level Per Nursing on Admit: 3=High Contraindications-Pharm: Other *list below* JESSE GAMBOA DO Apr 08, 2017 08:09
[2017-04-08] MEDS: NICOTINE 14 MG (NICODERM) PATCH TD SCH (08:16)
[2017-04-08] MEDS: GABAPENTIN 300 MG (NEURONTIN) CAP PO SCH (08:16)
[2017-04-08] MEDS: DOCUSATE SODIUM 100 MG (COLACE) CAP PO SCH (08:16)
[2017-04-08] MEDS: MEMANTINE 10 MG (NAMENDA) TABLET PO SCH (08:17)
[2017-04-08] MEDS: OXYBUTYNIN (DITROPAN) 5 MG TAB PO SCH (08:17)
[2017-04-08] MEDS: DONEPEZIL 10 MG (ARICEPT) TAB PO SCH (08:17)
[2017-04-08] MEDS: amLODIPine 5 MG (NORVASC) TAB PO SCH (08:17)
[2017-04-08] MEDS: CLOPIDOGREL 75 MG (PLAVIX) TABLET PO SCH (08:17)
[2017-04-08 08:30] VITALS: BP 116/78
[2017-04-08 08:57] VITALS: BP 120/75
--- NOTE | 2017-04-14 07:22 | Clinic Account Progress/Dx ---
Clinic Account Progress/Dx DIAGNOSIS: Time Seen by Provider: 07:15 adult antisocial behavior. Bipolar disorder. Tobacco use. Dementia. COPD. Essential hypertension. Nicotine dependence. Hyperlipidemia. Restlessness and agitation. dementia with behavioral disturbance JESSE GAMBOA DO Apr 14, 2017 07:22
== END 2017-04-08 08:10 ==
LOC: EDUNIT# 12:47 → ER 12:48 → 4TH 18:55 → UNDOADMOB 18:55 → 4TH 20:40
PROVIDERS: ADMIT Internal Medicine; ATTEND Family Medicine
DX: F31.9 Bipolar disorder, unspecified (principal); R45.1 Restlessness and agitation; F17.210 Nicotine dependence, cigarettes, uncomplicated; Z72.811 Adult antisocial behavior; J44.9 Chronic obstructive pulmonary disease, unspecified; E78.00 Pure hypercholesterolemia, unspecified; I10 Essential (primary) hypertension; K21.9 Gastro-esophageal reflux disease without esophagitis; F03.91 Unspecified dementia, unspecified severity, with behavioral disturbance; R32 Unspecified urinary incontinence; Z79.899 Other long term (current) drug therapy
CPT/HCPCS: 36415; 71020; 80053; 80306; 80320; 80329; 81000; 85025; 93005; 94640; 94760; G0378

== ENCOUNTER 2020-03-25 09:29 | Inpatient (IN) | payer MEDICAID, MEDICARE ==
[~2020-03-25] VITALS: Ht 170.2 cm; Wt 68.4 kg
[~2020-03-25 09:29] MED LIST changes: +ALBU2.5V4 NEB; +AMLO-250 PO; +CLOP75TA28 PO; +CYAN10007 PO; +DOCU100C37 PO; +DONE10TA41 PO; +FLUT1DIS26 IH; +GABA-488 PO; +HALO50AM2 IM; +HYDR-4226 PO; -HYDR-757 PO; +LORA0.5T PO; +LORA2VIA3 IM; +MAGN400O7 PO; +MELA1TAB27 PO; +MEMA10TA57 PO; +MULT-1049 PO; +OXYB5TAB13 PO; +PANT40TA52 PO; +SIMV20TA26 PO; +SODI30SP2 NSEACH
[2020-03-25] MEDS ORDERED: LACTATED RINGERS 1,000 ML IV ONE ×2 (09:57→10:15)
[2020-03-25 10:10] LABS: BASOPHILS % (AUTO) 0 % (0-10); EOSINOPHILS % (AUTO) 0 % (0-10); HEMATOCRIT 40 % (35-52); HEMOGLOBIN 13.1 g/dL (11.5-16.0); LYMPHOCYTES # (AUTO) 0.6 10^3/uL (1.0-4.0); LYMPHOCYTES % (AUTO) 8 % (12-44); MEAN CORPUSCULAR HEMOGLOBIN 30 pg (25-34); MEAN CORPUSCULAR HGB CONC 33 g/dL (32-36); MEAN CORPUSCULAR VOLUME 91 fL (80-99); MEAN PLATELET VOLUME 10.4 fL (9.0-12.2); MONOCYTES # (AUTO) 0.2 10^3/uL (0.0-1.0); MONOCYTES % (AUTO) 3 % (0-12); NEUTROPHILS # (AUTO) 6.5 10^3/uL (1.8-7.8); NEUTROPHILS % (AUTO) 88 % (42-75); PLATELET COUNT 248 10^3/uL (130-400); WHITE BLOOD COUNT 7.4 10^3/uL (4.3-11.0)
[2020-03-25 10:13] VITALS: BP 152/89
[2020-03-25 10:14] LABS: ALBUMIN 3.3 GM/DL (3.2-4.5); CHLORIDE 109 MMOL/L (98-107); POTASSIUM 4.2 MMOL/L (3.6-5.0); SODIUM 143 MMOL/L (135-145)
[2020-03-25 10:15] LABS: CALCIUM 9.4 MG/DL (8.5-10.1)
[2020-03-25 10:16] LABS: GLUCOSE 222 MG/DL (70-105); TOTAL PROTEIN 6.7 GM/DL (6.4-8.2)
[2020-03-25 10:17] LABS: CARBON DIOXIDE 21 MMOL/L (21-32)
[2020-03-25 10:18] LABS: BILIRUBIN,TOTAL 0.4 MG/DL (0.1-1.0)
[2020-03-25 10:20] LABS: ALKALINE PHOSPHATASE 70 U/L (40-136); CREATININE SERUM 0.76 MG/DL (0.60-1.30); GFR ESTIMATED > 60
[2020-03-25 10:21] LABS: BUN/CREATININE RATIO 36
[2020-03-25 10:23] LABS: ALANINE AMINOTRANSFERASE 21 U/L (0-55)
[2020-03-25 10:31] LABS: ABG OXYGEN SATURATION 99 % (94-100); ABG PCO2 38 MMHG (35-45); ABG PH 7.42 (7.37-7.43); ABG PO2 143 MMHG (79-93); ABG TCO2 25.1 MMOL/L (21.0-31.0)
[2020-03-25 10:32] LABS: ALLENS TEST YES-POS; INSPIRED O2 BIPAP 100%; PATIENT TEMP 98.7; VENTILATOR NO
[2020-03-25 10:34] LABS: PROTHROMBIN TIME PATIENT 13.6 SEC (12.2-14.7)
--- NOTE | 2020-03-25 10:47 | ED Respiratory ---
General Chief Complaint: Respiratory Problems Stated Complaint: SOB Nursing Triage Note: PT BROUGHT IN BY [facility] FROM [facility] WITH COMPLAINT OF LOW O2. PT IS COVID +. PT WAS LOW 90s ON 7LNC ON EMS ARRIVAL. THEY APPLIED NRB 15L AND PT WENT UP TO MID 90s. Source: patient, EMS Exam Limitations: no limitations History of Present Illness Date Seen by Provider: Mar 25, 2020 Time Seen by Provider: 09:40 Initial Comments Patient arrives ER by EMS from [facility] with hypoxia. Oxygen sats in the upper 80s per nursing staff. She was in the low 90s per EMS when they arrived on room air and they initiated her on a nonrebreather which had her at 96% by the time she arrived. She has a history of schizophrenia but does answer for herself and is oriented times person place a although not time or situation. She does want to be full code. She is okay with being intubated if necessary. She does not have a history of lung disease. She is not on oxygen at baseline. No episodes of diarrhea. She denies nausea or pain. Primary care by Dr. Hernandez. Allergies and Home Medications Allergies Coded Allergies: bupropion (Verified Allergy, Unknown, 11/25/16) fluoxetine (Verified Allergy, Unknown, 11/25/16) lithium (Verified Allergy, Unknown, 11/25/16) Home Medications Albuterol Sulfate 2.5 Mg/3 Ml Vial.neb, 2.5 MG IH TID, (Reported) Amlodipine Besylate 5 Mg Tablet, 5 MG PO DAILY, (Reported) Clopidogrel Bisulfate 75 Mg Tablet, 75 MG PO DAILY, (Reported) Cyanocobalamin (Vitamin B-12) 1,000 Mcg Tablet.er, 1,000 MCG PO DAILY, (Reported) Docusate Sodium 100 Mg Capsule, 100 MG PO DAILY, (Reported) Donepezil HCl 10 Mg Tablet, 10 MG PO DAILY, (Reported) Fluticasone/Salmeterol 1 Each Blst.w.dev, 1 PUFF IH BID, (Reported) Gabapentin 300 Mg Capsule, 300 MG PO BID, (Reported) Haloperidol Decanoate 50 Mg/1 Ml Ampul, 12.5 MG IM UD, (Reported) ONCE EVERY 14 DAYS Lorazepam 2 Mg/1 Ml Vial, 0.5 MG IM Q6H PRN for ANXIETY, (Reported) TO BE GIVEN IF RESIDENT REFUSES PO LORAZEPAM Lorazepam 0.5 Mg Tablet, 0.5 MG PO Q6H PRN for ANXIETY, (Reported) Magnesium Hydroxide 400 Mg/5 Ml Oral.susp, 30 ML PO DAILY PRN for CONSTIPATION- 7TH LINE, (Reported) Melatonin/Pyridoxine HCl (B6) 1 Each Tablet, 3 MG PO HS, (Reported) Memantine HCl 10 Mg Tablet, 10 MG PO BID, (Reported) Multivitamin-Min/Iron/FA/Vit K 1 Each Tablet, 1 TAB PO DAILY, (Reported) Oxybutynin Chloride 5 Mg Tablet, 5 MG PO BID, (Reported) Pantoprazole Sodium 40 Mg Tablet.dr, 40 MG PO DAILY, (Reported) Simvastatin 20 Mg Tablet, 20 MG PO HS, (Reported) Sodium Chloride 30 Ml [place], 2 SPRAYS NSEACH Q6H PRN for DRYNESS, (Reported) Patient Home Medication List Home Medication List Reviewed: Yes Review of Systems Review of Systems Constitutional: No chills, No diaphoresis; malaise, weakness EENTM: No ear discharge, No ear pain Respiratory: cough, short of breath Cardiovascular: No chest pain, No palpitations Gastrointestinal: No abdominal pain, No nausea, No vomiting Genitourinary: No discharge, No dysuria Musculoskeletal: No back pain, No joint pain Skin: No change in color, No change in hair/nails Psychiatric/Neurological: Denies Anxiety, Denies Depressed All Other Systems Reviewed Negative Unless Noted: Yes Past Qjkjhlz-Htkxws-Gspfle Hx Patient Social History Alcohol Use: Denies Use Recreational Drug Use: No Smoking Status: Former Smoker Type Used: Cigarettes Recent Foreign Travel: No Contact w/Someone Who Travel: No Recent Infectious Disease Expo: Yes Immunizations Up To Date Tetanus Booster (TDap): Unknown PED Vaccines UTD: Yes Date of Influenza Vaccine: Jan 20, 2017 Seasonal Allergies Seasonal Allergies: No Past Medical History Surgeries: No Respiratory: Yes COPD Currently Using CPAP: No Currently Using BIPAP: No Cardiac: Yes High Cholesterol, Hypertension Neurological: Yes Dementia Genitourinary: Yes (URINARY INCONTINENCE) UTI-Chronic Gastrointestinal: Yes Gastroesophageal Reflux Musculoskeletal: Yes (MUSLCE WEAKNESS) Endocrine: No HEENT: No Cancer: No Psychosocial: Yes (dementia with behaviors) Anxiety, Bipolar, Schizophrenia, Depression Integumentary: No Physical Exam Vital Signs - First Documented 03/25/20 03/25/20 09:33 10:13 Pulse 76 Resp 25 B/P (MAP) 132/94 (107) Pulse Ox 92 O2 Delivery Non Rebreather O2 Flow Rate 100.00 Capillary Refill : Less Than 3 Seconds Height: 5'7.00" Weight: 130lbs. 0.0oz. 58.807806sq; 21.00 BMI Method:Stated General Appearance: moderate distress, other (chroniclly ill) Eyes: Bilateral Eye Normal Inspection, Bilateral Eye PERRL, Bilateral Eye EOMI HEENT: PERRL/EOMI, normal ENT inspection, TMs normal, pharynx normal Neck: non-tender, full range of motion, supple, normal inspection Respiratory: lungs clear, normal breath sounds, respiratory distress, accessory muscle use Cardiovascular: normal peripheral pulses, regular rate, rhythm, no edema Gastrointestinal: normal bowel sounds, non tender, soft Extremities: normal range of motion, non-tender, normal inspection, normal capillary refill Neurologic/Psychiatric: no motor/sensory deficits, alert, normal mood/affect, other (person place) Skin: normal color, warm/dry Focused Exam Sepsis Stage: Sepsis Possible Source: Pulmonary Lactate Level 03/25/20 09:37: Lactic Acid Level 2.26*H 03/25/20 12:08: Lactic Acid Level 1.38 Time of Focused Exam: 13:56 Respiratory: Lungs Clear, Normal Breath Sounds, No Accessory Muscle Use, Respi ratory Distress (Mild, controlled on BiPAP with sats in the mid 90s) Cardiovascular: Regular Rate, Rhythm, No Edema, Normal Peripheral Pulses Capillary Refill: Less Than 3 Seconds Peripheral Pulses: 2+ Radial Pulses (R), 2+ Radial Pulses (L) Skin: normal color, cool Lactic Acid Level Laboratory Tests Test 03/25/20 09:37 03/25/20 12:08 Lactic Acid Level 2.26 MMOL/L (0.50-2.00) *H 1.38 MMOL/L (0.50-2.00) Within 3hrs of presentation: Admin fluids, Admin 30ml/kg IBW due to BMI>30 (Reduced IV fluids secondary to COVID-19 diagnosis), Admin ABX, Blood cultures prior to ABX's, Focus exam, Lactate level Progress/Results/Core Measures Suspected Sepsis Recent Fever Within 48 Hours: No Infection Criteria Present: None New/Unexplained Altered Menta: No Sepsis Screen: No Definite Risk SIRS Temperature: Pulse: 73 Respiratory Rate: 26 Laboratory Tests 03/25/20 09:37: White Blood Count 7.4 Blood Pressure 152 /89 Mean: 107 03/25/20 09:37: Lactic Acid Level 2.26*H 03/25/20 12:08: Lactic Acid Level 1.38 Laboratory Tests 03/25/20 09:37: Creatinine 0.76, INR Comment 1.0, Platelet Count 248, Total Bilirubin 0.4 Results/Orders Lab Results Laboratory Tests Test 03/25/20 09:37 03/25/20 10:21 03/25/20 12:08 03/25/20 13:53 Range/Units White Blood Count 7.4 4.3-11.0 10^3/uL Red Blood Count 4.37 3.80-5.11 10^6/uL Hemoglobin 13.1 11.5-16.0 g/dL Hematocrit 40 35-52 % Mean Corpuscular Volume 91 80-99 fL Mean Corpuscular Hemoglobin 30 25-34 pg Mean Corpuscular Hemoglobin Concent 33 32-36 g/dL Red Cell Distribution Width 13.9 10.0-14.5 % Platelet Count 248 130-400 10^3/uL Mean Platelet Volume 10.4 9.0-12.2 fL Immature Granulocyte % (Auto) 1 % Neutrophils (%) (Auto) 88 H 42-75 % Lymphocytes (%) (Auto) 8 L 12-44 % Monocytes (%) (Auto) 3 0-12 % Eosinophils (%) (Auto) 0 0-10 % Basophils (%) (Auto) 0 0-10 % Neutrophils # (Auto) 6.5 1.8-7.8 10^3/uL Lymphocytes # (Auto) 0.6 L 1.0-4.0 10^3/uL Monocytes # (Auto) 0.2 0.0-1.0 10^3/uL Eosinophils # (Auto) 0.0 0.0-0.3 10^3/uL Basophils # (Auto) 0.0 0.0-0.1 10^3/uL Immature Granulocyte # (Auto) 0.1 0.0-0.1 10^3/uL Neutrophils % (Manual) 91 % Lymphocytes % (Manual) 7 % Monocytes % (Manual) 2 % Eosinophils % (Manual) 0 % Basophils % (Manual) 0 % Band Neutrophils 0 % Blood Morphology Comment NORMAL Prothrombin Time 13.6 12.2-14.7 SEC INR Comment 1.0 0.8-1.4 Activated Partial Thromboplast Time 26 24-35 SEC D-Dimer 2.28 H 0.00-0.49 UG/ML Sodium Level 143 135-145 MMOL/L Potassium Level 4.2 3.6-5.0 MMOL/L Chloride Level 109 H 98-107 MMOL/L Carbon Dioxide Level 21 21-32 MMOL/L Anion Gap 13 5-14 MMOL/L Blood Urea Nitrogen 27 H 7-18 MG/DL Creatinine 0.76 0.60-1.30 MG/DL Estimat Glomerular Filtration Rate > 60 BUN/Creatinine Ratio 36 Glucose Level 222 H 70-105 MG/DL Lactic Acid Level 2.26 *H 1.38 0.50-2.00 MMOL/L Calcium Level 9.4 8.5-10.1 MG/DL Corrected Calcium 10.0 8.5-10.1 MG/DL Total Bilirubin 0.4 0.1-1.0 MG/DL Aspartate Amino Transf (AST/SGOT) 26 5-34 U/L Alanine Aminotransferase (ALT/SGPT) 21 0-55 U/L Alkaline Phosphatase 70 40-136 U/L C-Reactive Protein High Sensitivity 14.00 H 0.00-0.50 MG/DL Total Protein 6.7 6.4-8.2 GM/DL Albumin 3.3 3.2-4.5 GM/DL Procalcitonin 0.07 <0.10 NG/ML Blood Gas Puncture Site L RAD Blood Gas Patient Temperature 98.7 Arterial Blood pH 7.42 7.37-7.43 Arterial Blood Partial Pressure CO2 38 35-45 MMHG Arterial Blood Partial Pressure O2 143 H 79-93 MMHG Arterial Blood HCO3 24 23-27 MMOL/L Arterial Blood Total CO2 25.1 21.0-31.0 MMOL/L Arterial Blood Oxygen Saturation 99 94-100 % Arterial Blood Base Excess 0.0 -2.5-2.5 MMOL/L Carlos Test YES-POS Blood Gas Ventilator Setting NO Blood Gas Inspired Oxygen BIPAP 100% Urine Color YELLOW Urine Clarity CLEAR Urine pH 7.0 5-9 Urine Specific Zalma 1.025 H 1.016-1.022 Urine Protein TRACE H NEGATIVE Urine Glucose (UA) NEGATIVE NEGATIVE Urine Ketones NEGATIVE NEGATIVE Urine Nitrite NEGATIVE NEGATIVE Urine Bilirubin NEGATIVE NEGATIVE Urine Urobilinogen 2.0 < = 1.0 MG/DL Urine Leukocyte Esterase NEGATIVE NEGATIVE Urine RBC (Auto) NEGATIVE NEGATIVE Urine RBC NONE /HPF Urine WBC 0-2 /HPF Urine Squamous Epithelial Cells 2-5 /HPF Urine Crystals NONE /LPF Urine Bacteria FEW H /HPF Urine Casts NONE /LPF Urine Mucus SMALL H /LPF Urine Culture Indicated NO Micro Results Microbiology 03/25/20 Influenza Types A,B Antigen (ASTER) - Final, Complete My Orders Orders - MARITZA LOWERY Lactated Ringers (Lr 1000 Ml Iv Solution (03/25/20 09:57) Cbc With Automated Diff (03/25/20 10:01) Comprehensive Metabolic Panel (03/25/20 10:01) Blood Culture (03/25/20 10:01) Sputum Culture (03/25/20 10:01) Urinalysis (03/25/20 10:01) Urine Culture (03/25/20 10:01) Protime With Inr (03/25/20 10:01) Partial Thromboplastin Time (03/25/20 10:01) Chest 1 View, Ap/Pa Only (03/25/20 10:01) Ed Iv/Invasive Line Start (03/25/20 10:01) Ed Iv/Invasive Line Start (03/25/20 10:01) Vital Signs Adult Sepsis Patie Q15M (03/25/20 10:01) O2 (03/25/20 10:01) Remove Rings In Anticipation O (03/25/20 10:01) Lactic Acid Analyzer (03/25/20 10:01) Influenza A And B Antigens (03/25/20 10:01) Lactated Ringers (Lr 1000 Ml Iv Solution (03/25/20 10:15) Manual Differential (03/25/20 09:37) Arterial Blood Gas (03/25/20 10:21) Arterial Blood Draw (03/25/20 ) Lorazepam Injection (Ativan Injection) (03/25/20 14:00) Lorazepam Injection (Ativan Injection) (03/25/20 13:46) Dexamethasone Injection (Decadron Injec (03/25/20 14:00) Dexamethasone Injection (Decadron Injec (03/25/20 13:55) Hs C Reactive Protein (03/25/20 14:00) Procalcitonin (Pct) (03/25/20 14:00) Fibrin Degradation Products (03/25/20 14:00) Medications Given in ED Current Medications Medications Dose Ordered Sig/Sachin Route Start Time Stop Time Status Last Admin Dose Admin Dexamethasone Sodium Phosphate 6 mg ONCE ONCE IV 03/25/20 14:00 03/25/20 14:01 DC 03/25/20 14:05 6 MG Lactated Ringer's 1,000 ml @ 0 mls/hr Q0M ONCE IV 03/25/20 10:15 03/25/20 10:16 DC 03/25/20 10:00 1,000 MLS/HR Lorazepam 2 mg ONCE ONCE IVP 03/25/20 14:00 03/25/20 14:01 DC 03/25/20 13:53 2 MG Vital Signs/I&O 03/25/20 03/25/20 09:33 10:13 Pulse 76 73 Resp 25 26 B/P (MAP) 132/94 (107) Pulse Ox 92 99 O2 Delivery Non Rebreather O2 Flow Rate 100.00 Capillary Refill : Less Than 3 Seconds Blood Pressure Mean: 107 Progress Note #1: Time: 11:29 Progress Note ABG septic work-up but we suspect COVID-19 is the source of her symptoms so we are doing cautious fluids. We will put her on some steroids and use BiPAP as she is maxed out on a oxime mask at 95% sats. After applying the mask she is satting in the upper 90s and she says she feels much more comfortable, her heart rate is down and her oxygen sats have improved. Lactate and BUN are elevated so we will give her another 500 milliliters of saline. Progress Note #2: Time: 12:55 Progress Note Called the [place] access line and they do not have any beds available. Called [facility] and they have may be 1 place that is still excepting COVID-19 critical care. They encouraged just to continue looking. Progress Note #3: Time: 13:48 Progress Note Patient took her mask off trying to go to the bathroom on her own. We helped her get to the commode and put her on nonrebreather. Her sats were about 76%. They improved into the upper 80s on nonrebreather. We put her back on the mask after putting her back to bed. She is panting and says she is very anxious. We have offered an antianxiolytic and she is okay with that. We will give 2 mg Ativan. Dumont catheter will be placed. She is not able to tolerate getting on the commode without desatting. Progress Note #4: Time: 14:13 Progress Note [facility] has no beds Mika is on diversion. [place], [place]. We were able to find a bed locally; although it may be a while before it is available for her to go up. We have put a ICU bed in the room for her. Diagnostic Imaging Diagonstic Imaging: Xray Plain Films/CT/US/NM/MRI: chest Comments NAME: CRISTOFER PROCTOR MED REC#: [id number] PT STATUS: REG ER : 1945 PHYSICIAN: MARITZA LOWERY MD ADMIT DATE: 03/25/20/ER Draft Date of Exam:03/25/20 CHEST 1 VIEW, AP/PA ONLY INDICATION: Hypoxia, Covid positive. Frontal chest obtained at 10:52 a.m. compared to 04/04/2017. FINDINGS: There is mild cardiomegaly with unchanged pacemaker device. There is central vascular congestion. There is diffuse interstitial infiltrate versus edema which is new compared to the prior study. There is no pneumothorax or pleural fluid. IMPRESSION: Mild cardiomegaly with central vascular congestion. There is diffuse interstitial edema versus infiltrate which is new compared to the prior study. There is no pneumothorax or pleural fluid. Dictated on workstation # [id number] Dict: 03/25/20 1103 Trans: 03/25/20 1107 [id number] Interpreted by: GREGG IRWIN MD Electronically signed by: Reviewed: Reviewed by Me Departure Communication (Admissions) Time/Spoke to Admitting Phy: 14:20 Dr. Maria accepts the patient to stepdown. Impression Primary Impression: COVID-19 Additional Impressions: Acute respiratory failure due to COVID-19 Sepsis Qualified Codes: A41.9 - Sepsis, unspecified organism; R65.20 - Severe sepsis without septic shock; J96.01 - Acute respiratory failure with hypoxia Disposition: ADMITTED INPATIENT Condition: Stable Admissions Decision to Admit Reason: Admit from ER (General) Decision to Admit/Date: Mar 25, 2020 Time/Decision to Admit Time: 11:10 Departure-Patient Inst. Referrals: JESSE GAMBOA DO (PCP/Family) Primary Care Physician MARITZA LOWERY Mar 25, 2020 10:47
[2020-03-25 11:05] LABS: BAND NEUTROPHILS 0 %; BASOPHILS % (MANUAL) 0 %; EOSINOPHILS % (MANUAL) 0 %; LYMPHOCYTES % (MANUAL) 7 %; MONOCYTES % (MANUAL) 2 %; NEUTROPHILS % (MANUAL) 91 %; RBC MORPH NORMAL
--- NOTE | 2020-03-25 11:08 | Diagnostic Imaging Report ---
INDICATION: Hypoxia, Covid positive. Frontal chest obtained at 10:52 a.m. compared to 04/04/2017. FINDINGS: There is mild cardiomegaly with unchanged pacemaker device. There is central vascular congestion. There is diffuse interstitial infiltrate versus edema which is new compared to the prior study. There is no pneumothorax or pleural fluid. IMPRESSION: Mild cardiomegaly with central vascular congestion. There is diffuse interstitial edema versus infiltrate which is new compared to the prior study. There is no pneumothorax or pleural fluid. Dictated by: Dictated on workstation # [id number]
[2020-03-25] MEDS ORDERED: LORazepam INJ 2 MG/ML (ATIVAN) VIAL ONE ×2 (13:46→16:59)
[2020-03-25] MEDS ORDERED: LORazepam INJ 2 MG/ML (ATIVAN) VIAL IVP ONE ×3 (14:00→19:00)
[2020-03-25 14:02] LABS: BILIRUBIN,URINE NEGATIVE (NEGATIVE); CLARITY,URINE CLEAR; COLOR,URINE YELLOW; GLUCOSE, URINE (UA) NEGATIVE (NEGATIVE); KETONES,URINE NEGATIVE (NEGATIVE); LEUKOCYTE ESTERASE ,URINE NEGATIVE (NEGATIVE); NITRITE,URINE NEGATIVE (NEGATIVE); PROTEIN,URINE TRACE (NEGATIVE)
[2020-03-25 14:11] LABS: BACTERIA,URINE FEW /HPF; WBC,URINE 0-2 /HPF
--- NOTE | 2020-03-25 15:01 | History & Physical-Hospitalist ---
History of Present Illness HPI/Chief Complaint Pt is 74yoCF with a PMH of schizophrenia who presented to the ER due to hypoxia. She was diagnosed with COVID at the NH she resides at and was found to be hypoxic by nursing staff this morning and was place don 7lpm. EMS was called and she rquired a NRB to maintain stats. She would not tolerate her NRB and sats dropped to 70s when it was off. SHGe was then placed on BiPAP. She was given 2mg of ativan for this and was alert but did not respond to me. All history obtained from the records. She tested positive on 01/14 but was asymptomatic until 01/19 when she developed mild hypoxia. Source: patient Date Seen 03/25/20 Time Seen by a Provider: 14:53 Attending Physician PCP Ludwig Kovacs DO Referring Physician Date of Admission Home Medications & Allergies Home Medications Reviewed patient Home Medication Reconciliation performed by pharmacy medication reconciliations commercial pest control technician and/or nursing. Patients Allergies have been reviewed. Allergies Allergies Coded Allergies bupropion (Verified Allergy, Unknown, 11/25/16) fluoxetine (Verified Allergy, Unknown, 11/25/16) lithium (Verified Allergy, Unknown, 11/25/16) Past Kfxjbke-Zhqnyd-Kbyvoq Hx Past Med/Social Hx: Reviewed Nursing Past Med/Soc Hx Patient Social History Alcohol Use: Denies Use Recreational Drug Use: No Smoking Status: Former Smoker Type Used: Cigarettes Recent Foreign Travel: No Contact w/other who traveled: No Recent Infectious Disease Expo: Yes Immunizations Up To Date Tetanus Booster (TDap): Unknown Pediatric: Yes Date of Influenza Vaccine: Jan 20, 2017 Seasonal Allergies Seasonal Allergies: No Past Medical History Currently Using CPAP: No Currently Using BIPAP: No Cardiac: High Cholesterol, Hypertension Neurological: Dementia Genitourinary: UTI-Chronic Gastrointestinal: Gastroesophageal Reflux Psychosocial: Anxiety, Bipolar, Schizophrenia, Depression Review of Systems ROS-Unable to Obtain: drowsy following ativan Constitutional: see HPI Physical Exam Physical Exam Vital Signs Vital Signs - First Documented 03/25/20 03/25/20 03/25/20 03/25/20 09:33 10:13 19:33 20:21 Temp 36.9 Pulse 76 Resp 25 B/P (MAP) 132/94 (107) Pulse Ox 92 O2 Delivery Non Rebreather O2 Flow Rate 100.00 FiO2 100 Capillary Refill : Less Than 3 Seconds Height, Weight, BMI Height: 5'7.00" Weight: 130lbs. 0.0oz. 58.705758ri; 21.00 BMI Method:Stated General Appearance: Chronically ill, Mild Distress (on BiPAP), Thin HEENT: PERRL/EOMI, Moist Mucous Membranes, Other (full exam obscured by BiPAP) Neck: Normal Inspection, Supple Respiratory: No Accessory Muscle Use, Decreased Breath Sounds; No Rhonci, No Wheezing; Other (on BiPAP) Cardiovascular: Regular Rate, Rhythm, No Murmur Gastrointestinal: Normal Bowel Sounds, Non Tender, Soft Extremity: Normal Capillary Refill, No Calf Tenderness, No Pedal Edema Neurologic/Psychiatric: Alert, Other (did not speak) Skin: Normal Color, Warm/Dry Results Results/Procedures Labs Laboratory Tests 03/25/20 09:37 03/26/20 03:29 Patient resulted labs reviewed. Imaging: Reviewed Imaging Report Imaging [facility] [place] NAME: HITESHCRISTOFER MED REC#: [id number] PT STATUS: REG ER : 1945 PHYSICIAN: MARITZA LOWERY MD ADMIT DATE: 03/25/20/ER Signed Date of Exam:03/25/20 CHEST 1 VIEW, AP/PA ONLY INDICATION: Hypoxia, Covid positive. Frontal chest obtained at 10:52 a.m. compared to 04/04/2017. FINDINGS: There is mild cardiomegaly with unchanged pacemaker device. There is central vascular congestion. There is diffuse interstitial infiltrate versus edema which is new compared to the prior study. There is no pneumothorax or pleural fluid. IMPRESSION: Mild cardiomegaly with central vascular congestion. There is diffuse interstitial edema versus infiltrate which is new compared to the prior study. There is no pneumothorax or pleural fluid. Dictated by: Dictated on workstation # [id number] Dict: 03/25/20 1103 Trans: 03/25/20 1331 [id number] Interpreted by: GREGG IRWIN MD Electronically signed by: GREGG IRWIN MD 03/25/20 1331 Assessment/Plan Admission Diagnosis Acute hypoxic respiratory failure due to COVID19 Admission Status: Inpatient Order (span 2 midnights) Reason for Inpatient Admission: see below Assessment and Plan Acute hypoxic respiratory failure due to COVID19 Continue on BiPAP Admit to ICU as is full code Start Decadron and remdesivir Will attempt consent for convalescent plasma when mentation improves lovenox IS MAT protocol Schizophrenia Advanced Dementia Continue home meds when able Overall poor prison prognosis HTN BP well controlled, trend DVT ppx: Lovenox Diagnosis/Problems Diagnosis/Problems (1) Schizophrenia Qualifiers: Schizophrenia type: unspecified Qualified Codes: F20.9 - Schizophrenia, unspecified (2) Acute respiratory failure due to COVID-19 Status: Acute (3) COVID-19 Status: Acute BART QUACH MD Mar 25, 2020 15:01
[2020-03-25] MEDS ORDERED: REMDESIVIR INJ 200 MG in NS (IVPB) 210 ML IV ONE (15:30)
--- NOTE | 2020-03-25 16:30 | NUR ---
attempt to call report to icu. no answer.
--- NOTE | 2020-03-25 17:10 | NUR ---
attempt to call report at this time. floriculture teacher reports will call back
--- NOTE | 2020-03-25 17:47 | NUR ---
icu reports issue with negative pressure room. reports needs to wait for maintance to evaluate room before pt can come up.
[2020-03-25] MEDS ORDERED: ACETAMINOPHEN 500 MG TAB (TYLENOL) PO PRN (18:45)
[2020-03-25] MEDS ORDERED: LORazepam INJ 2 MG/ML (ATIVAN) VIAL IV PRN (18:45)
[2020-03-25] MEDS ORDERED: CATHETER FLUSH 10 ML SYR IV PRN (18:45)
[2020-03-25] MEDS ORDERED: ONDANSETRON 4 MG/2 ML (SDV) Z0FRAN IV PRN (18:45)
[2020-03-25 19:33] VITALS: BP 122/76
[2020-03-25] MEDS ORDERED: REMDESIVIR INJ 200 MG in NS (IVPB) 210 ML IV NR (20:00)
[2020-03-25] MEDS: GABAPENTIN 300 MG (NEURONTIN) CAP PO SCH (20:16)
[2020-03-25] MEDS: LACTATED RINGERS 1,000 ML IV SCH (20:16)
[2020-03-25 20:21] VITALS: BP 132/94
[2020-03-25] MEDS ORDERED: RT-ALBUTEROL INHALER HFA (VENTOLIN HFA) 18 GM IH PRN (20:30)
[2020-03-25 20:32] VITALS: BP 152/89
[2020-03-25 21:51] VITALS: BP 129/70
[2020-03-25] MEDS: RT-ALBUTEROL INHALER HFA (VENTOLIN HFA) 18 GM IH SCH (21:51)
[2020-03-26] VITALS (11 sets, daily range): BP systolic 111–143; BP diastolic 45–80
[2020-03-26] MEDS: RT-ALBUTEROL INHALER HFA (VENTOLIN HFA) 18 GM IH SCH ×4 (01:47→18:52)
[2020-03-26 03:41] LABS: BASOPHILS % (AUTO) 0 % (0-10); EOSINOPHILS % (AUTO) 0 % (0-10); HEMATOCRIT 42 % (35-52); HEMOGLOBIN 13.1 g/dL (11.5-16.0); LYMPHOCYTES # (AUTO) 0.6 10^3/uL (1.0-4.0); LYMPHOCYTES % (AUTO) 12 % (12-44); MEAN CORPUSCULAR HEMOGLOBIN 30 pg (25-34); MEAN CORPUSCULAR HGB CONC 31 g/dL (32-36); MEAN CORPUSCULAR VOLUME 95 fL (80-99); MONOCYTES # (AUTO) 0.2 10^3/uL (0.0-1.0); MONOCYTES % (AUTO) 3 % (0-12); NEUTROPHILS # (AUTO) 4.4 10^3/uL (1.8-7.8); NEUTROPHILS % (AUTO) 83 % (42-75); PLATELET COUNT 235 10^3/uL (130-400); WHITE BLOOD COUNT 5.2 10^3/uL (4.3-11.0)
[2020-03-26] MEDS: LACTATED RINGERS 1,000 ML IV SCH ×3 (03:41→14:47)
[2020-03-26 04:00] LABS: ALBUMIN 3.1 GM/DL (3.2-4.5); CHLORIDE 106 MMOL/L (98-107); POTASSIUM 4.3 MMOL/L (3.6-5.0); SODIUM 139 MMOL/L (135-145)
[2020-03-26 04:01] LABS: CALCIUM 9.3 MG/DL (8.5-10.1)
[2020-03-26 04:03] LABS: GLUCOSE 150 MG/DL (70-105); TOTAL PROTEIN 6.2 GM/DL (6.4-8.2)
[2020-03-26 04:04] LABS: CARBON DIOXIDE 25 MMOL/L (21-32)
[2020-03-26 04:05] LABS: BILIRUBIN,TOTAL 0.4 MG/DL (0.1-1.0)
[2020-03-26 04:06] LABS: ALKALINE PHOSPHATASE 75 U/L (40-136); CREATININE SERUM 0.77 MG/DL (0.60-1.30); GFR ESTIMATED > 60
[2020-03-26 04:07] LABS: BUN/CREATININE RATIO 30
[2020-03-26 04:09] LABS: ALANINE AMINOTRANSFERASE 19 U/L (0-55)
[2020-03-26] MEDS: GABAPENTIN 300 MG (NEURONTIN) CAP PO SCH ×4 (08:44→22:14)
[2020-03-26] MEDS: CLOPIDOGREL 75 MG (PLAVIX) TABLET PO SCH ×2 (08:44→08:45)
--- NOTE | 2020-03-26 08:46 | Diagnostic Imaging Report ---
INDICATION: Respiratory failure Portable chest 3:03 AM There is a dual-chamber pacemaker. There is diffuse interstitial thickening in the lungs with some alveolar consolidation left lower lung. IMPRESSION: Diffuse interstitial infiltrate with some increasing left basilar consolidation suspicious for pneumonia. Dictated by: Dictated on workstation # [id number]
[2020-03-26] MEDS ORDERED: PANTOPRAZOLE 40 MG (PROTONIX) VIAL IV SCH (09:00)
--- NOTE | 2020-03-26 09:25 | Progress Note - Hospitalist ---
Subjective HPI/CC On Admission Date Seen by Provider: Mar 26, 2020 Time Seen by Provider: 09:19 Pt is 74yoCF with a PMH of schizophrenia who presented to the ER due to hypoxia. She was diagnosed with COVID at the NH she resides at and was found to be hypoxic by nursing staff this morning and was place don 7lpm. EMS was called and she rquired a NRB to maintain stats. She would not tolerate her NRB and sats dropped to 70s when it was off. Lana was then placed on BiPAP. She was given 2mg of ativan for this and was alert but did not respond to me. All history obtained from the records. She tested positive on 01/14 but was asymptomatic until 01/19 when she developed mild hypoxia. Subjective/Events-last exam Pt remains on BiPAP. No complaints per RN. On central monitoring but does not have pulse ox probe available. Seems to be doing well on spot checks overnight though. Discussed with RN who will order probe for pulse ox today. Focused Exam Lactate Level 03/25/20 09:37: Lactic Acid Level 2.26*H 03/25/20 12:08: Lactic Acid Level 1.38 Time of Focused Exam: 13:56 Objective Exam Vital Signs Vital Signs Date Time Temp Pulse Resp B/P (MAP) Pulse Ox O2 Delivery O2 Flow Rate FiO2 03/26/20 18:53 60 21 93 100.00 03/26/20 16:00 35.6 118/65 (82) NIV Bilevel 03/26/20 16:00 80 Capillary Refill : Less Than 3 Seconds General Appearance: No Apparent Distress, Chronically ill Respiratory: Decreased Breath Sounds; No Wheezing; Other (on BiPAP) Cardiovascular: Regular Rate, Rhythm, No Murmur Gastrointestinal: Normal Bowel Sounds, Non Tender, Soft Extremity: No Pedal Edema Neurologic/Psychiatric: Other (did not speak again today but alert and made eye contact) Results/Procedures Lab Laboratory Tests 03/26/20 03:29 Patient resulted labs reviewed. Imaging: Reviewed Imaging Report Assessment/Plan Assessment and Plan Assess & Plan/Chief Complaint Acute hypoxic respiratory failure due to COVID19 Continue on BiPAP, attempt to switch to Vapotherm Continue Decadron and remdesivir Still unable to consent to convalescent plasma lovenox IS MAT protocol Schizophrenia Continue home meds when med rec available HTN BP well controlled, trend HLD COntinue home meds when able Diagnosis/Problems Diagnosis/Problems (1) Schizophrenia Qualifiers: Schizophrenia type: unspecified Qualified Codes: F20.9 - Schizophrenia, unspecified (2) Acute respiratory failure due to COVID-19 Status: Acute (3) COVID-19 Status: Acute Clinical Quality Measures DVT/VTE Risk/Contraindication: Risk Factor Score Per Nursin RFS Level Per Nursing on Admit: 4+=Very High BART QUACH MD Mar 26, 2020 09:25
[2020-03-26] MEDS ORDERED: DULO60CA59 PO (12:03)
[2020-03-26] MEDS ORDERED: GABA300C PO (12:03)
[2020-03-26] MEDS ORDERED: PANT20TA18 PO (12:03)
[2020-03-26] MEDS ORDERED: BUDE10.2 INH (12:03)
[2020-03-26] MEDS ORDERED: ZINC50TA58 PO (12:03)
[2020-03-26] MEDS ORDERED: MIRT7.5T8 PO (12:03)
[2020-03-26] MEDS ORDERED: MELA3TAB39 PO (12:03)
[2020-03-26] MEDS ORDERED: FAMO20TA5 PO (12:03)
[2020-03-26] MEDS ORDERED: SENN-234 PO (12:03)
[2020-03-26] MEDS ORDERED: ASCO-262 PO (12:03)
[2020-03-26] MEDS ORDERED: RISP1TAB93 PO (12:03)
[2020-03-26] MEDS ORDERED: CHOL10002 PO (12:03)
[2020-03-26] MEDS ORDERED: CEFD300C3 PO (12:03)
--- NOTE | 2020-03-26 12:08 | NUR ---
MED REC WAS ENTERED USING THE MAR FROM [facility] AND [facility]
--- NOTE | 2020-03-26 14:00 | NUR ---
THIS RN NOTIFIED DR QUACH THAT PT UNABLE TO TAKE AM PO MEDS
[2020-03-26] MEDS ORDERED: REMDESIVIR INJ 100 MG in NS (IVPB) 230 ML IV SCH (15:30)
[2020-03-26] MEDS ORDERED: MILK OF MAGNESIA 400 MG/5 ML 30 ML UDC PO PRN (20:30)
[2020-03-26] MEDS ORDERED: MEMANTINE 10 MG (NAMENDA) TABLET PO SCH (21:00)
[2020-03-26] MEDS ORDERED: SIMvastatin 20 MG (ZOCOR) TAB PO SCH (21:00)
[2020-03-26] MEDS ORDERED: NON-FORMULARY MEDICATION 1 EA EA (Budesonide/Formoterol Fumarate (Symbicort 160-4.5 Mcg In INH SCH (21:00)
[2020-03-26] MEDS ORDERED: FAMOTIDINE 20 MG (PEPCID) TABLET PO SCH (21:00)
[2020-03-26] MEDS ORDERED: NON-FORMULARY MEDICATION 1 EA EA (Mirtazapine 7.5 MG) PO SCH (21:00)
[2020-03-26] MEDS ORDERED: risperiDONE 1 MG (RisperDAL) TAB PO SCH (21:00)
[2020-03-26] MEDS ORDERED: SENNOSIDES 8.6 MG (SENOKOT) TAB PO SCH (21:00)
--- NOTE | 2020-03-26 21:30 | NUR ---
PT UNABLE TO TAKE ANY PO MEDS. EYES OPEN AND WILL MAKE EYE CONTACT BUT WILL NOT ANSWER ANY QUESTIONS. PT SLIGHTLY RESTLESS AND WILL NOT KEEP MONITOR LEADS ON.
[2020-03-27] VITALS: BP 142/88
[2020-03-27] MEDS: LACTATED RINGERS 1,000 ML IV SCH (00:27)
[2020-03-27 03:37] LABS: ABG BASE EXCESS 0.1 MMOL/L (-2.5-2.5); ABG OXYGEN SATURATION 91 % (94-100); ABG PCO2 39 MMHG (35-45); ABG PH 7.41 (7.37-7.43); ABG PO2 54 MMHG (79-93); ABG TCO2 25.8 MMOL/L (21.0-31.0)
[2020-03-27 03:39] LABS: ALLENS TEST YES-POS; INSPIRED O2 90%; PATIENT TEMP 35.4; VENTILATOR NO
[2020-03-27 04:18] LABS: ALBUMIN 3.2 GM/DL (3.2-4.5); CHLORIDE 105 MMOL/L (98-107); SODIUM 138 MMOL/L (135-145)
[2020-03-27 04:20] LABS: CALCIUM 9.5 MG/DL (8.5-10.1)
--- NOTE | 2020-03-27 04:20 | NUR ---
THIS RN WAS WITNESS TO DR. BRYSON' S TELEPHONE CONVERSATION WITH JHONNY, PATIENT'S SISTER. HE EXPLAINED TO HER THAT THE PATIENT IS CURRENTLY IN RESPIRATORY DISTRESS AND WOULD NEED TO BE INTUBATED TO SAVE HER LIFE. FOLLOWING A DISCUSSION REGARDING RISKS AND BENEFITS OF INTUBATION, PATIENT'S SISTER STATED THAT SHE DID NOT WANT HER SISTER TO BE INTUBATED D/T THE FACT THAT SHE FEARED THAT SHE WOULD NEVER COME OFF OF THE VENT. DR. BRYSON STRESSED THAT THIS WAS AN EMERGENT SITUATION AND WITHOUT BEING INTUBATED, THE PATIENT WOULD IN THE VERY NEAR FUTURE. DR. BRYSON ALSO EXPLAINED COMFORT CARE AND DNR/DNI STATUS. AFTER DENYING HAVING ANY ADDITIONAL QUESTIONS AND VERBALIZING UNDERSTANDING OF THE SITUATION, PATIENT'S SISTER STATED THAT SHE WOULD LIKE THE PATIENT TO BE A DNR AND TO BE PLACED ON COMFORT CARE.
[2020-03-27 04:21] LABS: GLUCOSE 111 MG/DL (70-105); TOTAL PROTEIN 6.3 GM/DL (6.4-8.2)
[2020-03-27 04:22] LABS: BILIRUBIN,TOTAL 0.6 MG/DL (0.1-1.0); CARBON DIOXIDE 24 MMOL/L (21-32)
[2020-03-27 04:24] LABS: ALKALINE PHOSPHATASE 70 U/L (40-136); CREATININE SERUM 0.65 MG/DL (0.60-1.30); GFR ESTIMATED > 60
--- NOTE | 2020-03-27 04:24 | Pulmonary Consultation ---
History of Present Illness History of Present Illness Date Seen by Provider: Mar 27, 2020 Time Seen by Provider: 04:19 Date of Admission History of Present Illness Pt is in acute respiratory failure on BiPAP 100%. Her Sp02 is in the 70's. I called family to give them an update while pt is moving over to ICU. I talked to Aparna Tran who is listed as her next of kin. Aparna states pt has hx of advanced dementia. Aparna states pt has been a DNR. Aparna states she does not want her intubated and pt would not want this. After I explained all options of care. Aparna wants us to proceed with Comfort Care Only. 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 2 ICU RNs witnessed phone conversation. PT has been unable to make her own dici Allergies and Home Medications Allergies Coded Allergies: bupropion (Verified Allergy, Unknown, 11/25/16) fluoxetine (Verified Allergy, Unknown, 11/25/16) lithium (Verified Allergy, Unknown, 11/25/16) Home Medications Albuterol Sulfate 2.5 Mg/3 Ml Vial.neb, 3 ML NEB Q6H PRN for SHORTNESS OF BREATH, (Reported) Amlodipine Besylate 5 Mg Tablet, 5 MG PO DAILY, (Reported) HOLD FOR BP LESS THEN 100/60 AND PULSE LESS THEN 60 Ascorbate Calcium 500 Mg Tablet, 500 MG PO DAILY, (Reported) Budesonide/Formoterol Fumarate 10.2 Gm Hfa.aer.ad, 2 PUFF INH BID, (Reported) Cefdinir 300 Mg Capsule, 300 MG PO BID, (Reported) START DATE 03-22-2020 DURATION 7 DAYS Cholecalciferol (Vitamin D3) 25 Mcg Tablet, 25 MCG PO DAILY, (Reported) Clopidogrel Bisulfate 75 Mg Tablet, 75 MG PO DAILY, (Reported) Cyanocobalamin (Vitamin B-12) 1,000 Mcg Tablet.er, 1,000 MCG PO DAILY, ( Reported) Donepezil HCl 10 Mg Tablet, 10 MG PO DAILY, (Reported) Duloxetine HCl 60 Mg Capsule.dr, 60 MG PO DAILY, (Reported) Famotidine 20 Mg Tablet, 20 MG PO BID, (Reported) Gabapentin 300 Mg Capsule, 300 MG PO TID, (Reported) Magnesium Hydroxide 400 Mg/5 Ml Oral.susp, 30 ML PO DAILY PRN for CONSTIPATION- 7TH LINE, (Reported) Melatonin 3 Mg Tablet, 3 MG PO HS, (Reported) Memantine HCl 10 Mg Tablet, 10 MG PO BID, (Reported) Mirtazapine 7.5 Mg Tablet, 7.5 MG PO HS, (Reported) Multivitamin-Min/Iron/FA/Vit K 1 Each Tablet, 1 TAB PO DAILY, (Reported) Pantoprazole Sodium 20 Mg Tablet.dr, 20 MG PO DAILY, (Reported) Risperidone 1 Mg Tablet, 1 MG PO BID, (Reported) Sennosides 8.6 Mg Tablet, 8.6 MG PO HS, (Reported) Simvastatin 20 Mg Tablet, 20 MG PO HS, (Reported) Zinc 50 Mg Tablet, 50 MG PO DAILY, (Reported) Past Uijqbju-Dvpkwe-Upoyos Hx Past Med/Social Hx: Reviewed Nursing Past Med/Soc Hx Patient Social History Alcohol Use: Denies Use Recreational Drug Use: No Smoking Status: Former Smoker Type Used: Cigarettes Recent Foreign Travel: No Contact w/Someone Who Travel: No Recent Infectious Disease Expo: Yes Immunizations Up To Date Tetanus Booster (TDap): Unknown PED Vaccines UTD: Yes Date of Influenza Vaccine: Jan 20, 2017 Seasonal Allergies Seasonal Allergies: No Past Medical History Surgeries: No Respiratory: Yes COPD Currently Using CPAP: No Currently Using BIPAP: No Cardiac: Yes High Cholesterol, Hypertension Neurological: Yes Dementia Genitourinary: Yes (URINARY INCONTINENCE) UTI-Chronic Gastrointestinal: Yes Gastroesophageal Reflux Musculoskeletal: Yes (MUSLCE WEAKNESS) Endocrine: No HEENT: No Cancer: No Psychosocial: Yes (dementia with behaviors) Anxiety, Bipolar, Schizophrenia, Depression Integumentary: No Sepsis Event Evaluation Height, Weight, BMI Height: 5'7.00" Weight: 130lbs. 0.0oz. 58.534361ze; 24.06 BMI Method:Stated Exam Exam Vital Signs Date Time Temp Pulse Resp B/P (MAP) Pulse Ox O2 Delivery O2 Flow Rate FiO2 03/27/20 01:00 60 03/27/20 00:00 60 142/88 (106) 93 NIV Bilevel 100.00 03/26/20 22:44 60 17 96 100.00 03/26/20 22:00 NIV Bilevel 100.00 03/26/20 21:00 NIV Bilevel 90 03/26/20 21:00 NIV Bilevel 90 03/26/20 20:00 60 18 121/45 (70) 91 NIV Bilevel 80.00 03/26/20 19:00 60 03/26/20 18:53 60 21 93 100.00 03/26/20 16:00 35.6 85 24 118/65 (82) 92 NIV Bilevel 80.00 03/26/20 16:00 NIV Bilevel 80 03/26/20 14:56 68 28 95 80.00 03/26/20 12:00 36.4 76 20 125/71 (89) 92 NIV Bilevel 80.00 03/26/20 12:00 NIV Bilevel 80 03/26/20 11:36 64 03/26/20 08:00 NIV Bilevel 80 03/26/20 08:00 36.0 60 22 143/80 (101) 95 NIV Bilevel 80.00 03/26/20 08:00 NIV Bilevel 80 03/26/20 06:43 60 I & O 03/27/20 07:00 Output Total 850 ml Balance -850 ml Height & Weight Height: 5'7.00" Weight: 130lbs. 0.0oz. 58.262611iv; 24.06 BMI Method:Stated General Appearance: No Apparent Distress, Chronically ill HEENT: PERRL/EOMI, Moist Mucous Membranes, Other (full exam obscured by BiPAP) Neck: Normal Inspection, Supple Respiratory: Decreased Breath Sounds; No Wheezing; Other (on BiPAP) Cardiovascular: Regular Rate, Rhythm, No Murmur Capillary Refill: Less Than 3 Seconds Peripheral Pulses: 2+ Radial Pulses (R), 2+ Radial Pulses (L) Gastrointestinal: normal bowel sounds, non tender, soft Extremity: No Pedal Edema Neurologic/Psychiatric: Other (did not speak again today but alert and made eye contact) Skin: Normal Color, Warm/Dry Results Lab Laboratory Tests 03/25/20 09:37 03/26/20 03:29 03/27/20 03:53 Assessment/Plan Assessment/Plan Acute hypoxic respiratory failure due to COVID19 Continue on BiPAP - pt has worsening respiratory distress Continue Decadron and remdesivir Unable to obtain consent for convalescent plasma since admission secondary to pt's confusion lovenox IS MAT protocol Schizophrenia Continue home meds when med rec available Dementia HTN ABHILASH BRYSON DO Mar 27, 2020 04:24
[2020-03-27 04:25] LABS: BUN/CREATININE RATIO 31
[2020-03-27] MEDS ORDERED: morphine INJ 4 MG/ML 1 ML (VIAL/SYRINGE) ONE (04:25)
[2020-03-27 04:27] LABS: ALANINE AMINOTRANSFERASE 20 U/L (0-55)
[2020-03-27] MEDS: MIDAZOLAM 5 MG/5 ML (VERSED) VIAL INJ PRN ×2 (04:30→06:20)
[2020-03-27] MEDS ORDERED: MIDAZOLAM 5 MG/5 ML (VERSED) VIAL ONE ×2 (04:39→05:44)
[2020-03-27] MEDS: HALOPERIDOL 5 MG/ML (HALDOL) VIAL IM PRN ×2 (05:45→08:20)
[2020-03-27] MEDS ORDERED: HALOPERIDOL 5 MG/ML (HALDOL) VIAL ONE (05:45)
[2020-03-27] MEDS ORDERED: morphine (ROXINOL) 10 MG/0.5 ML oral conc 0.5 ML PO PRN (06:30)
[2020-03-27] MEDS ORDERED: PANTOPRAZOLE 20 MG TABLET (PROTONIX) PO SCH (07:00)
[2020-03-27] MEDS: LORazepam INJ 2 MG/ML (ATIVAN) VIAL IV PRN ×2 (08:34→17:25)
[2020-03-27] MEDS: RT-ALBUTEROL INHALER HFA (VENTOLIN HFA) 18 GM IH SCH ×2 (08:36→10:40)
[2020-03-27] MEDS: GABAPENTIN 300 MG (NEURONTIN) CAP PO SCH (08:36)
[2020-03-27] MEDS ORDERED: VITAMIN D3 25 MCG (1,000 UNITS) TABLET PO SCH (09:00)
[2020-03-27] MEDS ORDERED: NON-FORMULARY MEDICATION 1 EA EA (Duloxetine HCl 60 MG) PO SCH (09:00)
[2020-03-27] MEDS ORDERED: NON-FORMULARY MEDICATION 1 EA EA (Ascorbate Calcium (Vitamin C) 500 MG) PO SCH (09:00)
[2020-03-27] MEDS ORDERED: CLOPIDOGREL 75 MG (PLAVIX) TABLET PO SCH (09:00)
[2020-03-27] MEDS ORDERED: NON-FORMULARY MEDICATION 1 EA EA (Zinc 50 MG) PO SCH (09:00)
[2020-03-27] MEDS ORDERED: DONEPEZIL 10 MG (ARICEPT) TAB PO SCH (09:00)
[2020-03-27] MEDS: morphine INJ 4 MG/ML 1 ML (VIAL/SYRINGE) IVP PRN ×4 (09:36→23:38)
--- NOTE | 2020-03-27 11:17 | NUR ---
REPORT TAKEN AT THIS TIME FROM ONELIA WOLFF FROM CARDIAC STEPDOWN UNIT. THIS PATIENT WILL BE MOVED TO ROOM 430-1 OR 431-1 WHEN THEY DISCHARGE LATER THIS A.M. Addendum: 03/27/20 at 1118 by TEETEE AGUILAR RN WILL BE PLACED TEMPORARILY IN ROOM 405-1
--- NOTE | 2020-03-27 11:17 | NUR ---
PT REPORT GIVEN TO AL[facility]OUS[facility] 4TH FLOOR. PT TO BE TX TO ROOM 405 AT THIS TIME.
--- NOTE | 2020-03-27 11:45 | NUR ---
PATIENT TO FLOOR VIA CART AT THIS TIME FROM ICU, ACCOMPANIED BY ICU STAFF. THIS RN WILL ASSUME CARE OF THIS PATIENT At THIS TIME.
--- NOTE | 2020-03-27 12:44 | NUR ---
Palliative Care RN IN TO SEE PATIENT, found her to her alert with eyes open but non verbal and showed no response to verbal or tactile cues. She is cold in the extremities and cyanotic in her finger, toes and around mouth. She is also tachypneic at 35 BPM and using accessory muscles to breathe which does make her appear as if she is having some air hunger. I administered 4mg Morphine to assist with her breathing difficulties. Patient did respond to the saline flushed into her left AC Saline Lock by lifting her arm up and looking concerned. After administration she did close her eyes and is breathing easier with 25 BPM now and still using abdominal muscles. She does have short rapid inspiration and long more forceful expirations. Palliative Care RN will continue to follow and offer assist as able. It is anticipated that the patient will pass in the next 12 to 24 hours.
[2020-03-28] MEDS: morphine INJ 4 MG/ML 1 ML (VIAL/SYRINGE) IVP PRN ×4 (05:54→16:39)
--- NOTE | 2020-03-28 10:30 | Physician Query Clarification ---
"Physician Query-General Query to Physician: The medical record reflects the following clinical scenario: History/Risk factors: Covid 19, Dementia Clinical Findings: RR 25, O2 Sat initially in the 70s, LA 2.26 Treatment: LR 1L, Remdesivir, Bipap, Supplemental 02 Question: Do you agree with the impression of Sepsis per Dr. Radha Hernandez? If you agree, please document in Progress Notes or Discharge Summary. 1. Yes; will document Sepsis due to Covid 19 present on admission in the Progress Notes 2. No; will continue to document Covid 19 in the Progress Notes 3. Other; will document explanation of clinical findings 4. Clinically undetermined; no explanation for clinical findings Please remember a lack of response to the above will prompt a phone page by CDI/coding staff. In responding to this query, please exercise your independent professional judgment. The purpose of this communication is to more accurately reflect the complexity of your patients condition. The fact that a question is asked does not imply that any particular answer is desired or expected. Thank you for timely response to this clarification. Tameka Younger, MSN, RN RN Specialist-Clinical Doc Improvement CD -Health Info Mgmt Operations [address] [facility] t: [phone] | f: [phone] If you are unable to reach me at my extension, I may be working from home. Please contact me at [phone] PHYSICIAN RESPONSE: Based on the clinical findings in the record, please respond to the query above on this document as an addendum. Physician Response: Physician Response 1 If you have questions please contact: Central Service Tech: Ext: Thank you for your time and cooperation. Clinical Director Ship/Central Service Tech This is a permanent part of the medical record TAMEKA YOUNGER Mar 28, 2020 10:30 BART QUACH MD Mar 28, 2020 19:40"
--- NOTE | 2020-03-28 17:26 | Progress Note - Hospitalist ---
Subjective HPI/CC On Admission Date Seen by Provider: Mar 28, 2020 Time Seen by Provider: 14:00 Pt is 74yoCF with a PMH of schizophrenia who presented to the ER due to hypoxia. She was diagnosed with COVID at the NH she resides at and was found to be hypoxic by nursing staff this morning and was place don 7lpm. EMS was called and she rquired a NRB to maintain stats. She would not tolerate her NRB and sats dropped to 70s when it was off. SHGe was then placed on BiPAP. She was given 2mg of ativan for this and was alert but did not respond to me. All history obtained from the records. She tested positive on 01/14 but was asymptomatic until 01/19 when she developed mild hypoxia. Subjective/Events-last exam Pt laying in bed. Eye opens but looking past me. Does not speak. Focused Exam Time of Focused Exam: 13:56 Objective Exam Vital Signs Vital Signs Date Time Temp Pulse Resp B/P (MAP) Pulse Ox O2 Delivery O2 Flow Rate FiO2 03/29/20 16:44 Room Air 03/27/20 01:00 60 03/27/20 00:00 93 100.00 03/26/20 22:44 17 03/26/20 21:00 90 03/26/20 16:00 35.6 Capillary Refill : Less Than 3 Seconds General Appearance: No Apparent Distress, Chronically ill Respiratory: Lungs Clear, Decreased Breath Sounds (shallow breaths) Cardiovascular: Regular Rate, Rhythm, No Murmur Results/Procedures Lab Patient resulted labs reviewed. Imaging: Reviewed Imaging Report Assessment/Plan Assessment and Plan Assess & Plan/Chief Complaint Acute hypoxic respiratory failure due to COVID19 Schizophrenia Advanced Dementia HTN Transitioned to comfort care only Palliative consult, appreciate recs comfort care orderset placed Diagnosis/Problems Diagnosis/Problems (1) Schizophrenia Qualifiers: Schizophrenia type: unspecified Qualified Codes: F20.9 - Schizophrenia, unspecified (2) Acute respiratory failure due to COVID-19 Status: Acute (3) COVID-19 Status: Acute Clinical Quality Measures DVT/VTE Risk/Contraindication: Risk Factor Score Per Nursin RFS Level Per Nursing on Admit: 4+=Very High BART QUACH MD Mar 28, 2020 17:26
[2020-03-28] MEDS: LORazepam INJ 2 MG/ML (ATIVAN) VIAL IV PRN (18:32)
[2020-03-29] MEDS: morphine INJ 4 MG/ML 1 ML (VIAL/SYRINGE) IVP PRN ×4 (00:01→14:03)
[2020-03-29] MEDS: LORazepam INJ 2 MG/ML (ATIVAN) VIAL IV PRN ×3 (02:55→14:04)
--- NOTE | 2020-03-29 11:12 | NUR ---
PALLIATIVE CARE RN was in to se patient. She is responsive to voice cues. She has not had much transition in her declining process so we are looking to discharge her back to [facility] where she resided previously to live out the remainder of her days. She will be transported by EMS due to her bed bound state. I have spoken to her sister, Aparna, regarding this plan. Although she is surprised that the patient has not passed she is agreeable to returning to the facility.
--- NOTE | 2020-03-29 13:03 | Discharge Inst-Simple/Standard ---
Discharge Inst-Standard Patient Instructions/Follow Up Plan of Care/Instructions/FU: Please continue to take your medications as written. Activity as Tolerated: Yes Goal: patient is admitted back to the senior living at the end of life with expection of less than 6 months of survival. She will transition back to the senior living with comfort measures only and is a DNR. Discharge Diet: No Restrictions Return to The Hospital For: Uncontrolled symptoms. BART QUACH MD Mar 29, 2020 13:03
[2020-03-29] MEDS ORDERED: LORA2ORA PO (13:05)
[2020-03-29] MEDS ORDERED: MORP100S3 PO (13:05)
--- NOTE | 2020-03-29 15:19 | Discharge Summary ---
Diagnosis/Chief Complaint Date of Admission Mar 25, 2020 at 14:30 Date of Discharge Discharge Date: Mar 29, 2020 Admission Diagnosis Acute hypoxic respiratory failure due to COVID19 Primary Care Ludwig Kovacs DO Discharge Diagnosis (1) Schizophrenia (2) Acute respiratory failure due to COVID-19 Status: Acute (3) COVID-19 Status: Acute Discharge Summary Discharge Physical Exam Allergies: Coded Allergies: bupropion (Verified Allergy, Unknown, 11/25/16) fluoxetine (Verified Allergy, Unknown, 11/25/16) lithium (Verified Allergy, Unknown, 11/25/16) Vitals & I&Os Vital Signs Date Time Temp Pulse Resp B/P (MAP) Pulse Ox O2 Delivery O2 Flow Rate FiO2 03/29/20 16:44 Room Air 03/27/20 01:00 60 03/27/20 00:00 93 100.00 03/26/20 22:44 17 03/26/20 21:00 90 03/26/20 16:00 35.6 General Appearance: No Apparent Distress, Chronically ill Respiratory: No Accessory Muscle Use, No Respiratory Distress Neurologic/Psychiatric: Alert, Disoriented Hospital Course Pt as admitted due to acute hypoxic respiratory failure and ARDS due to COVID19. She was treated with BiPAP and admitted to stepdown for continued care. She continued to worse and as she was unable to communicate her wishes to us Dr Mancilla spoke with her sister who states she has long been a DNR and would not want intubation. They transitioned to comfort care only status and she was disc harged back to her group home for comfort care. Labs (last 24 hrs) Microbiology 03/25/20 Urine Culture - Final, Complete NO GROWTH 03/25/20 Blood Culture - Final, Complete No growth 03/25/20 Influenza Types A,B Antigen ([facility]) - Final, Complete Patient resulted labs reviewed. Imaging: Reviewed Imaging Report Discussion & Recommendations Discharge Planning: >30 minutes discharge planning Discharge Home Medications: Active Scripts Active Lorazepam Intensol (Lorazepam) 2 Mg/1 Ml Oral.conc 2 Mg PO Q2H PRN Morphine Conc. 20mg/ml (Morphine Sulfate) 100 Mg/5 Ml Solution 5 Mg PO Q2H PRN Reported Neurontin (Gabapentin) 300 Mg Capsule 300 Mg PO TID Symbicort 160-4.5 Mcg Inhaler (Budesonide/Formoterol Fumarate) 10.2 Gm Hfa.aer.ad 2 Puff INH BID Risperidone 1 Mg Tablet 1 Mg PO BID Famotidine 20 Mg Tablet 20 Mg PO BID Senna (Sennosides) 8.6 Mg Tablet 8.6 Mg PO HS Pantoprazole Sodium 20 Mg Tablet.dr 20 Mg PO DAILY Mirtazapine 7.5 Mg Tablet 7.5 Mg PO HS Duloxetine HCl 60 Mg Capsule.dr 60 Mg PO DAILY Milk of Magnesia (Magnesium Hydroxide) 400 Mg/5 Ml Oral.susp 30 Ml PO DAILY PRN Albuterol Sulfate 2.5 Mg/3 Ml Vial.neb 3 Ml NEB Q6H PRN Instructions to patient/family Please see electronic discharge instructions given to patient. Clinical Quality Measures DVT/VTE Risk/Contraindication: Risk Factor Score Per Nursin RFS Level Per Nursing on Admit: 4+=Very High Copy Copies To 1: LUDWIG KOVACS DO Problem Qualifiers (1) Schizophrenia: Schizophrenia type: unspecified Qualified Codes: F20.9 - Schizophrenia, unspecified BART QUACH MD Mar 29, 2020 15:19
--- NOTE | 2020-03-29 15:48 | NUR ---
GAVE REPORT TO YUMIKO RENE AT [facility]. NOTIFIED OF LAST DOSAGE OF MORPHINE AND ATIVAN AT 1403. WILL BE ON COMFORT CARE UPON RETURNING TO THEIR FACILITY. NO OTHER CONCERNS WERE NOTED WITH REPORT.
== END 2020-03-29 16:40 | disposition hospice, home (50) | DRG 871 ==
LOC: EDUNIT# 09:29 → ER 09:30 → CSD 14:30 → 4TH 03-27 11:28
PROVIDERS: ADMIT Family Medicine; ATTEND Family Medicine
PROC: XW033E5 Introduction of Remdesivir Anti-infective into Peripheral Vein, Percutaneous Approach, New Technology Group 5 (ICD-10-PCS; principal; 2020-03-26)
DX: A41.89 Other specified sepsis (principal); U07.1 COVID-19; J80 Acute respiratory distress syndrome; F03.91 Unspecified dementia, unspecified severity, with behavioral disturbance; J44.9 Chronic obstructive pulmonary disease, unspecified; E78.00 Pure hypercholesterolemia, unspecified; I10 Essential (primary) hypertension; K21.9 Gastro-esophageal reflux disease without esophagitis; F41.9 Anxiety disorder, unspecified; F31.9 Bipolar disorder, unspecified; F20.9 Schizophrenia, unspecified; Z87.891 Personal history of nicotine dependence
CPT/HCPCS: 36415; 36600; 71045; 80053; 81000; 82805; 83605; 84145; 85007; 85025; 85027; 85379; 85610; 85730; 86141; 87040; 87088; 87804; 94640; 94660; 96361; 96374; 96375; 96376